=== PATIENT | female | born 1955 | race Two or more races ===

== ENCOUNTER 2016-04-30 21:19 | Inpatient (IN) | payer SELFPAY ==
[~2016-04-30] VITALS: Ht 160 cm; Wt 77.1 kg
[2016-04-30] MEDS: IV NORMAL SALINE 1000ML BAG 1,000 ML IV SCH (01:00)
[2016-04-30] MEDS ORDERED: ONDANSETRON PF 4 MG/2 ML VIAL. IV ONE (22:00)
[2016-04-30] MEDS ORDERED: IV NORMAL SALINE 1000ML BAG 1,000 ML IV ONE (22:00)
[2016-04-30] MEDS ORDERED: HYDROMORPHONE 2 MG/ML VIAL. IV ONE (22:00)
[2016-04-30 22:10] LABS: BASO # 0.1 x10^3/uL (0.0-0.2); BASO % 1 % (0-3); EOS % 1 % (0-3); HEMATOCRIT 41.8 % (36.0-47.0); LYMPH # 1.9 x10^3/uL (1.0-4.8); LYMPH % 13 % (24-48); MEAN CORPUSCULAR HEMOGLOBIN 31 pg (25-35); MEAN CORPUSCULAR HGB CONC 34 g/dL (31-37); MEAN CORPUSCULAR VOLUME 93 fL (79-100); MONO % 5 % (0-9); NEUT % 80 % (31-73); PLATELET COUNT 247 x10^3/uL (140-400); RED BLOOD COUNT 4.51 x10^6/uL (3.50-5.40); RED CELL DISTRIBUTION WIDTH 13.6 % (11.5-14.5); WHITE BLOOD COUNT 14.5 x10^3/uL (4.0-11.0)
[2016-04-30 22:11] LABS: BILIRUBIN,URINE NEGATIVE (NEG); GLUCOSE,URINE NEGATIVE (NEG); NITRITE,URINE NEGATIVE (NEG); PROTEIN,URINE NEGATIVE (NEG-TRACE); UROBILINOGEN,URINE 0.2 mg/dL (0.2 mg/dL)
[2016-04-30 22:15] LABS: WBC,URINE OCC /HPF (0-4)
[2016-04-30 22:16] LABS: BACTERIA,URINE FEW /HPF (0-FEW); SQUAMOUS EPITHELIAL CELL,UR FEW /LPF
[2016-04-30 22:20] LABS: CALCIUM 9.3 mg/dL (8.5-10.1); CREATININE 0.8 mg/dL (0.6-1.0); GFR 72.7; POTASSIUM 3.8 mmol/L (3.5-5.1)
[2016-04-30 22:34] LABS: ALBUMIN 4.3 g/dL (3.4-5.0); TOTAL BILIRUBIN 0.5 mg/dL (0.2-1.0); TOTAL PROTEIN 8.7 g/dL (6.4-8.2)
--- NOTE | 2016-04-30 22:44 | RAD ---
CT abdomen and pelvis without contrast Indication: Ventral hernia and pain. Axial imaging through the abdomen and pelvis was performed without contrast. No prior studies are available for comparison. The lung bases are clear apart from minimal linear parenchymal density suggestive of atelectasis or scarring. The liver is unremarkable. There appear to be small stones or sludge within the gallbladder. The pancreas and spleen are unremarkable. No adrenal masses detected. Kidneys are unremarkable. Aorta is non aneurysmal. There is a midline ventral hernia. There appear to be small bowel loops extending through the abdominal wall defect into the subcutaneous tissues. These bowel loops are dilated and fluid-filled. There is some inflammatory stranding within the mesenteric fat of the anterior abdomen at the level of the hernia. Transition zone with normal caliber small bowel loops are present within the abdomen and findings are consistent with small bowel obstruction. No pneumatosis or free air is seen. There is no abscess formation identified. The bladder and uterus are unremarkable. There appear to be postop changes near the rectosigmoid junction. Impression: Midline ventral hernia containing dilated and fluid filled small bowel loops. There are normal caliber intra abdominal bowel loops and findings are suggestive of small bowel obstruction. No abscess formation or free air is detected. Electronically signed by: Presley Luther MD (Apr 30, 2016 22:43:09)
--- NOTE | 2016-04-30 23:10 | PHYS DOC ---
Past Medical History Past Medical History: High Cholesterol, Hypertension Past Surgical History: Other Additional Past Surgical Histo: hernia repair Alcohol Use: Occasionally Drug Use: None Adult General Chief Complaint Chief Complaint: ABDOMINAL PAIN HPI HPI 61-year-old female presents with a several hour history of severe abdominal pain and a fullness near the ventral umbilical incision. Patient states the pain is severe currently. She states that she's had a previous hernia repair before. She denies any vomiting. She denies any fever chills sweats. [] Review of Systems Review of Systems Constitutional: Denies fever or chills [] Eyes: Denies change in visual acuity, redness, or eye pain [] HENT: Denies nasal congestion or sore throat [] Respiratory: Denies cough or shortness of breath [] Cardiovascular: No additional information not addressed in HPI [] GI: Per history of present illness [] : Denies dysuria or hematuria [] Musculoskeletal: Denies back pain or joint pain [] Integument: Denies rash or skin lesions [] Neurologic: Denies headache, focal weakness or sensory changes [] Endocrine: Denies polyuria or polydipsia [] Current Medications Current Medications Current Medications Medications (Trade) Dose Ordered Sig/Ammy Start Time Stop Time Status Last Admin Dose Admin Hydromorphone HCl (Dilaudid) 1 mg 1X ONCE 04/30/16 22:00 04/30/16 22:01 DC 04/30/16 22:07 1 MG Ondansetron HCl (Zofran) 4 mg 1X ONCE 04/30/16 22:00 04/30/16 22:01 DC 04/30/16 22:06 4 MG Sodium Chloride (Iv Sodium Chloride 0.9% 1000ml Bag) 1,000 ml @ 1,000 mls/hr 1X ONCE 04/30/16 22:00 04/30/16 22:59 DC 04/30/16 22:08 1,000 MLS/HR Allergies Allergies Allergies Coded Allergies Type Severity Reaction Last Updated Verified No Known Drug Allergies 04/30/16 No Physical Exam Physical Exam Constitutional: Well developed, well nourished, moderate distress, non-toxic appearance. [] HENT: Normocephalic, atraumatic, bilateral external ears normal, oropharynx moist, no oral exudates, nose normal. [] Eyes: PERRLA, EOMI, conjunctiva normal, no discharge. [] Neck: Normal range of motion, no tenderness, supple, no stridor. [] Cardiovascular:Heart rate regular rhythm, no murmur [] Lungs & Thorax: Bilateral breath sounds clear to auscultation [] Abdomen: She has a palpable ventral hernia that is exquisitely tender to palp and nonreducible. [] Skin: Warm, dry, no erythema, no rash. [] Back: No tenderness, no CVA tenderness. [] Extremities: No tenderness, no cyanosis, no clubbing, ROM intact, no edema. [] Neurologic: Alert and oriented X 3, normal motor function, normal sensory function, no focal deficits noted. [] Psychologic: Anxious. [] Current Patient Data Vital Signs Vital Signs Date Time Temp Pulse Resp B/P Pulse Ox O2 Delivery O2 Flow Rate FiO2 04/30/16 21:36 97.1 86 22 172/97 98 Room Air 97.1 Lab Values Laboratory Tests Test 04/30/16 21:30 04/30/16 21:50 Urine Collection Type Unknown Urine Color Yellow Urine Clarity Clear Urine pH 6.0 Urine Specific [place] 1.025 Urine Protein Negativemg/dL (NEG-TRACE) Urine Glucose (UA) Negativemg/dL (NEG) Urine Ketones (Stick) Tracemg/dL (NEG) Urine Blood Moderate (NEG) Urine Nitrite Negative (NEG) Urine Bilirubin Negative (NEG) Urine Urobilinogen Dipstick 0.2mg/dL (0.2 mg/dL) Urine Leukocyte Esterase Negative (NEG) Urine RBC 6-10/HPF (0-2) Urine WBC Occ/HPF (0-4) Urine Squamous Epithelial Cells Few/LPF Urine Bacteria Few/HPF (0-FEW) Urine Mucus Slight/LPF White Blood Count 14.5x10^3/uL (4.0-11.0) H Red Blood Count 4.51x10^6/uL (3.50-5.40) Hemoglobin 14.0g/dL (12.0-15.5) Hematocrit 41.8% (36.0-47.0) Mean Corpuscular Volume 93fL (79-100) Mean Corpuscular Hemoglobin 31pg (25-35) Mean Corpuscular Hemoglobin Concent 34g/dL (31-37) Red Cell Distribution Width 13.6% (11.5-14.5) Platelet Count 247x10^3/uL (140-400) Neutrophils (%) (Auto) 80% (31-73) H Lymphocytes (%) (Auto) 13% (24-48) L Monocytes (%) (Auto) 5% (0-9) Eosinophils (%) (Auto) 1% (0-3) Basophils (%) (Auto) 1% (0-3) Neutrophils # (Auto) 11.7x10^3uL (1.8-7.7) H Lymphocytes # (Auto) 1.9x10^3/uL (1.0-4.8) Monocytes # (Auto) 0.8x10^3/uL (0.0-1.1) Eosinophils # (Auto) 0.1x10^3/uL (0.0-0.7) Basophils # (Auto) 0.1x10^3/uL (0.0-0.2) Sodium Level 141mmol/L (136-145) Potassium Level 3.8mmol/L (3.5-5.1) Chloride Level 103mmol/L (98-107) Carbon Dioxide Level 27mmol/L (21-32) Anion Gap 11 (6-14) Blood Urea Nitrogen 17mg/dL (7-20) Creatinine 0.8mg/dL (0.6-1.0) Estimated GFR (Cockcroft-Gault) 72.7 BUN/Creatinine Ratio 21 (6-20) H Glucose Level 130mg/dL (70-99) H Lactic Acid Level 1.3mmol/L (0.4-2.0) Calcium Level 9.3mg/dL (8.5-10.1) Total Bilirubin 0.5mg/dL (0.2-1.0) Aspartate Amino Transferase (AST) 24U/L (15-37) Alanine Aminotransferase (ALT) 25U/L (14-59) Alkaline Phosphatase 102U/L (46-116) Total Protein 8.7g/dL (6.4-8.2) H Albumin 4.3g/dL (3.4-5.0) Albumin/Globulin Ratio 1.0 (1.0-1.7) Lipase 103U/L (73-393) Laboratory Tests 04/30/16 21:50 Laboratory Tests 04/30/16 21:50 EKG EKG [] Radiology/Procedures Radiology/Procedures [] Course & Med Decision Making Course & Med Decision Making Pertinent Labs and Imaging studies reviewed. (See chart for details) [ED course: Evaluation reveals a 61-year-old female with likely incarcerated ventral hernia. CT scan confirms this. An NG tube was placed while she was in the emergency department. I spoke with Dr. Otero who agrees to take care of her from a surgical perspective. Dr. Shah will admit her to the hospital for pain control and further evaluation.] Dragon Disclaimer Dragon Disclaimer This electronic medical record was generated, in whole or in part, using a voice recognition dictation system. Departure Departure Impression: Primary Impression: Incarcerated ventral hernia Disposition: ADMITTED INPATIENT Admitting Physician: Other (Dr. Shah) Condition: GUARDED Referrals: UNKNOWN PCP NAME (PCP) LUCIO SIDDIQUI DO Apr 30, 2016 23:10
[2016-04-30] MEDS ORDERED: ONDANSETRON PF 4 MG/2 ML VIAL. IV PRN (23:15)
--- NOTE | 2016-04-30 23:55 | ACF ---
Admission Forms Criteria PAIN MANAGEMENT [facility] Clinical Indications for Admission to Inpatient Care (Place 'X' for any and all applicable criteria): Hospital admission is needed for appropriate care of the patient because of ANY ONE of the following are present (1)(2)(3)(4)(5): [X ]I. Severe pain requiring acute inpatient management as indicated by ALL of the following (2)(5)(10): [ X]a) Continuous or frequent (eg, every 2 to 4 hours) parenteral analgesics required [A] [X ]b) Necessity (ie, alternative approaches not effective) for analgesic regimen that can only be performed or initiated in inpatient setting [ ]II. Pain causing debilitation to the point of inability to function or be supported at any other level of care [ ]III. Severe side effects from pain medications as indicated by ANY ONE of the following (12)(13)(14)(15): [ ]a) Uncontrollable seizures [ ]b) Cardiac arrhythmias [ ]c) Severe volume depletion [ ]d) Vomiting that is uncontrollable at any other level of care [ ]e) Altered mental status ([place] coma scale score less than 13) [ ]f) Obstipation with inadequate GI function to maintain nutrition [ ]g) Dehydration that is severe or persistent The original [employer] content created by [employer] has been revised. The portions of the content which have been revised are identified through the use of italic text or in bold, and [employer] has neither reviewed nor approved the modified material. All other unmodified content is copyright [employer]. Please see references footnoted in the original [employer] edition 2016 Admission Criteria Met?: Yes ROSALINA BENAVIDES Apr 30, 2016 23:55
[2016-05-01] VITALS (11 sets, daily range): BP systolic 96–140; BP diastolic 48–72
[2016-05-01] MEDS: FENTANYL PF 100 MCG/2 ML VIAL. IV PRN ×2 (03:56→14:55)
[2016-05-01 04:37] LABS: BASO % 0 % (0-3); EOS % 0 % (0-3); HEMATOCRIT 39.5 % (36.0-47.0); HEMOGLOBIN 13.2 g/dL (12.0-15.5); LYMPH # 1.2 x10^3/uL (1.0-4.8); LYMPH % 10 % (24-48); MEAN CORPUSCULAR HEMOGLOBIN 31 pg (25-35); MEAN CORPUSCULAR HGB CONC 33 g/dL (31-37); MEAN CORPUSCULAR VOLUME 92 fL (79-100); MONO % 4 % (0-9); NEUT % 86 % (31-73); PLATELET COUNT 245 x10^3/uL (140-400); RED BLOOD COUNT 4.28 x10^6/uL (3.50-5.40); RED CELL DISTRIBUTION WIDTH 13.5 % (11.5-14.5); WHITE BLOOD COUNT 12.4 x10^3/uL (4.0-11.0)
[2016-05-01 05:40] LABS: ALBUMIN 3.7 g/dL (3.4-5.0); ALBUMIN/GLOBULIN RATIO 0.9 (1.0-1.7); CALCIUM 8.4 mg/dL (8.5-10.1); CREATININE 0.7 mg/dL (0.6-1.0); GFR 84.8; POTASSIUM 4.1 mmol/L (3.5-5.1); TOTAL BILIRUBIN 0.5 mg/dL (0.2-1.0); TOTAL PROTEIN 7.7 g/dL (6.4-8.2)
[2016-05-01] MEDS: IV NORMAL SALINE 1000ML BAG 1,000 ML IV SCH ×3 (05:53→19:13)
--- NOTE | 2016-05-01 07:10 | PDOC2 ---
CONSULT Date of Consult Date of Consult DATE: 05/01/16 TIME: 07:05 Reason for Consult Reason for Consult: Abd pain Source Source: Patient History of Present Illness Reason for Visit: 61 yo female with 12 hour history of abdominal pain, nausea and one episode of vomiting. Previous midline abdominal hernia repairs x2. CT showing ventral hernia with incarcerated small bowel and dilated loops consistient with obstruction. Past Medical History Cardiovascular: HTN, Hyperlipidemia Past Surgical History Past Surgical History: Hernia Repair (Ventral x2) Family History Family History: No Significant Social History No ALCOHOL: rare Drugs: None Lives: with Family Current Problem List Problem List Problems Medical Problems: (1) Incarcerated ventral hernia Status: Acute Current Medications Current Medications Current Medications Sodium Chloride (Iv Sodium Chloride 0.9% 1000ml Bag) 1,000 ml @ 1,000 mls/hr 1X ONCE IV Last administered on 04/30/16 22:08; Start 04/30/16 at 22:00; Stop 04/30/16 at 22:59; Status DC Hydromorphone HCl (Dilaudid) 1 mg 1X ONCE IV Last administered on 04/30/16 22: 07; Start 04/30/16 at 22:00; Stop 04/30/16 at 22:01; Status DC Ondansetron HCl (Zofran) 4 mg 1X ONCE IV Last administered on 04/30/16 22:06; Start 04/30/16 at 22:00; Stop 04/30/16 at 22:01; Status DC Ondansetron HCl (Zofran) 4 mg PRN Q8HRS PRN IV NAUSEA/VOMITING Last administered on 05/01/16 03:56; Start 04/30/16 at 23:15; Stop 05/01/16 at 23:14 Fentanyl Citrate 50 mcg 50 mcg PRN Q1HR PRN IV SEVERE PAIN Last administered on 05/01/16 03:56; Start 04/30/16 at 23:15; Stop 05/01/16 at 23:14 Sodium Chloride (Iv Sodium Chloride 0.9% 1000ml Bag) 1,000 ml @ 150 mls/hr Q6H40M IV Last administered on 04/30/16 01:00; Start 04/30/16 at 23:13; Stop 05/01/16 at 23:12 Allergies Allergies: Coded Allergies: No Known Drug Allergies (Unverified , 04/30/16) ROS Gastrointestinal: Yes Abdominal Pain, Yes Nausea, Yes Vomiting Physical Exam General: Alert, Oriented X3, Cooperative, mild distress HEENT: Atraumatic, PERRLA, EOMI Lungs: Clear to auscultation, Normal air movement Heart: Regular rate, No murmurs Abdomen: Normal bowel sounds, Soft, Other (tender mass midline) Extremities: No clubbing, No edema Skin: No breakdown Neuro: Normal speech Psych/Mental Status: Mental status NL Vitals VITALS Vital Signs Date Time Temp Pulse Resp B/P Pulse Ox O2 Delivery O2 Flow Rate FiO2 05/01/16 03:00 Room Air 05/01/16 00:04 80 18 151/67 93 04/30/16 21:36 97.1 97.1 Labs Labs Laboratory Tests Test 04/30/16 21:30 04/30/16 21:50 05/01/16 04:15 Urine Collection Type Unknown Urine Color Yellow Urine Clarity Clear Urine pH 6.0 Urine Specific [place] 1.025 Urine Protein Negativemg/dL (NEG-TRACE) Urine Glucose (UA) Negativemg/dL (NEG) Urine Ketones (Stick) Tracemg/dL (NEG) Urine Blood Moderate (NEG) Urine Nitrite Negative (NEG) Urine Bilirubin Negative (NEG) Urine Urobilinogen Dipstick 0.2mg/dL (0.2 mg/dL) Urine Leukocyte Esterase Negative (NEG) Urine RBC 6-10/HPF (0-2) Urine WBC Occ/HPF (0-4) Urine Squamous Epithelial Cells Few/LPF Urine Bacteria Few/HPF (0-FEW) Urine Mucus Slight/LPF White Blood Count 14.5x10^3/uL (4.0-11.0) 12.4x10^3/uL (4.0-11.0) Red Blood Count 4.51x10^6/uL (3.50-5.40) 4.28x10^6/uL (3.50-5.40) Hemoglobin 14.0g/dL (12.0-15.5) 13.2g/dL (12.0-15.5) Hematocrit 41.8% (36.0-47.0) 39.5% (36.0-47.0) Mean Corpuscular Volume 93fL (79-100) 92fL (79-100) Mean Corpuscular Hemoglobin 31pg (25-35) 31pg (25-35) Mean Corpuscular Hemoglobin Concent 34g/dL (31-37) 33g/dL (31-37) Red Cell Distribution Width 13.6% (11.5-14.5) 13.5% (11.5-14.5) Platelet Count 247x10^3/uL (140-400) 245x10^3/uL (140-400) Neutrophils (%) (Auto) 80% (31-73) 86% (31-73) Lymphocytes (%) (Auto) 13% (24-48) 10% (24-48) Monocytes (%) (Auto) 5% (0-9) 4% (0-9) Eosinophils (%) (Auto) 1% (0-3) 0% (0-3) Basophils (%) (Auto) 1% (0-3) 0% (0-3) Neutrophils # (Auto) 11.7x10^3uL (1.8-7.7) 10.7x10^3uL (1.8-7.7) Lymphocytes # (Auto) 1.9x10^3/uL (1.0-4.8) 1.2x10^3/uL (1.0-4.8) Monocytes # (Auto) 0.8x10^3/uL (0.0-1.1) 0.5x10^3/uL (0.0-1.1) Eosinophils # (Auto) 0.1x10^3/uL (0.0-0.7) 0.0x10^3/uL (0.0-0.7) Basophils # (Auto) 0.1x10^3/uL (0.0-0.2) 0.0x10^3/uL (0.0-0.2) Sodium Level 141mmol/L (136-145) 140mmol/L (136-145) Potassium Level 3.8mmol/L (3.5-5.1) 4.1mmol/L (3.5-5.1) Chloride Level 103mmol/L (98-107) 107mmol/L (98-107) Carbon Dioxide Level 27mmol/L (21-32) 24mmol/L (21-32) Anion Gap 11 (6-14) 9 (6-14) Blood Urea Nitrogen 17mg/dL (7-20) 17mg/dL (7-20) Creatinine 0.8mg/dL (0.6-1.0) 0.7mg/dL (0.6-1.0) Estimated GFR (Cockcroft-Gault) 72.7 84.8 BUN/Creatinine Ratio 21 (6-20) 24 (6-20) Glucose Level 130mg/dL (70-99) 148mg/dL (70-99) Lactic Acid Level 1.3mmol/L (0.4-2.0) Calcium Level 9.3mg/dL (8.5-10.1) 8.4mg/dL (8.5-10.1) Total Bilirubin 0.5mg/dL (0.2-1.0) 0.5mg/dL (0.2-1.0) Aspartate Amino Transf (AST/SGOT) 24U/L (15-37) 20U/L (15-37) Alanine Aminotransferase (ALT/SGPT) 25U/L (14-59) 17U/L (14-59) Alkaline Phosphatase 102U/L (46-116) 91U/L (46-116) Total Protein 8.7g/dL (6.4-8.2) 7.7g/dL (6.4-8.2) Albumin 4.3g/dL (3.4-5.0) 3.7g/dL (3.4-5.0) Albumin/Globulin Ratio 1.0 (1.0-1.7) 0.9 (1.0-1.7) Lipase 103U/L (73-393) Laboratory Tests Test 04/30/16 21:30 04/30/16 21:50 05/01/16 04:15 Urine Collection Type Unknown Urine Color Yellow Urine Clarity Clear Urine pH 6.0 Urine Specific [place] 1.025 Urine Protein Negativemg/dL (NEG-TRACE) Urine Glucose (UA) Negativemg/dL (NEG) Urine Ketones (Stick) Tracemg/dL (NEG) Urine Blood Moderate (NEG) Urine Nitrite Negative (NEG) Urine Bilirubin Negative (NEG) Urine Urobilinogen Dipstick 0.2mg/dL (0.2 mg/dL) Urine Leukocyte Esterase Negative (NEG) Urine RBC 6-10/HPF (0-2) Urine WBC Occ/HPF (0-4) Urine Squamous Epithelial Cells Few/LPF Urine Bacteria Few/HPF (0-FEW) Urine Mucus Slight/LPF White Blood Count 14.5x10^3/uL (4.0-11.0) 12.4x10^3/uL (4.0-11.0) Red Blood Count 4.51x10^6/uL (3.50-5.40) 4.28x10^6/uL (3.50-5.40) Hemoglobin 14.0g/dL (12.0-15.5) 13.2g/dL (12.0-15.5) Hematocrit 41.8% (36.0-47.0) 39.5% (36.0-47.0) Mean Corpuscular Volume 93fL (79-100) 92fL (79-100) Mean Corpuscular Hemoglobin 31pg (25-35) 31pg (25-35) Mean Corpuscular Hemoglobin Concent 34g/dL (31-37) 33g/dL (31-37) Red Cell Distribution Width 13.6% (11.5-14.5) 13.5% (11.5-14.5) Platelet Count 247x10^3/uL (140-400) 245x10^3/uL (140-400) Neutrophils (%) (Auto) 80% (31-73) 86% (31-73) Lymphocytes (%) (Auto) 13% (24-48) 10% (24-48) Monocytes (%) (Auto) 5% (0-9) 4% (0-9) Eosinophils (%) (Auto) 1% (0-3) 0% (0-3) Basophils (%) (Auto) 1% (0-3) 0% (0-3) Neutrophils # (Auto) 11.7x10^3uL (1.8-7.7) 10.7x10^3uL (1.8-7.7) Lymphocytes # (Auto) 1.9x10^3/uL (1.0-4.8) 1.2x10^3/uL (1.0-4.8) Monocytes # (Auto) 0.8x10^3/uL (0.0-1.1) 0.5x10^3/uL (0.0-1.1) Eosinophils # (Auto) 0.1x10^3/uL (0.0-0.7) 0.0x10^3/uL (0.0-0.7) Basophils # (Auto) 0.1x10^3/uL (0.0-0.2) 0.0x10^3/uL (0.0-0.2) Sodium Level 141mmol/L (136-145) 140mmol/L (136-145) Potassium Level 3.8mmol/L (3.5-5.1) 4.1mmol/L (3.5-5.1) Chloride Level 103mmol/L (98-107) 107mmol/L (98-107) Carbon Dioxide Level 27mmol/L (21-32) 24mmol/L (21-32) Anion Gap 11 (6-14) 9 (6-14) Blood Urea Nitrogen 17mg/dL (7-20) 17mg/dL (7-20) Creatinine 0.8mg/dL (0.6-1.0) 0.7mg/dL (0.6-1.0) Estimated GFR (Cockcroft-Gault) 72.7 84.8 BUN/Creatinine Ratio 21 (6-20) 24 (6-20) Glucose Level 130mg/dL (70-99) 148mg/dL (70-99) Lactic Acid Level 1.3mmol/L (0.4-2.0) Calcium Level 9.3mg/dL (8.5-10.1) 8.4mg/dL (8.5-10.1) Total Bilirubin 0.5mg/dL (0.2-1.0) 0.5mg/dL (0.2-1.0) Aspartate Amino Transf (AST/SGOT) 24U/L (15-37) 20U/L (15-37) Alanine Aminotransferase (ALT/SGPT) 25U/L (14-59) 17U/L (14-59) Alkaline Phosphatase 102U/L (46-116) 91U/L (46-116) Total Protein 8.7g/dL (6.4-8.2) 7.7g/dL (6.4-8.2) Albumin 4.3g/dL (3.4-5.0) 3.7g/dL (3.4-5.0) Albumin/Globulin Ratio 1.0 (1.0-1.7) 0.9 (1.0-1.7) Lipase 103U/L (73-393) Assessment/Plan Assessment/Plan Incarcerated recurrent ventral hernia Plan repair KATHLEEN AGUIRRE MD May 01, 2016 07:10
[2016-05-01] MEDS ORDERED: IV RINGERS,LACTATED 1000ML 1,000 ML IV SCH (07:11)
[2016-05-01] MEDS ORDERED: LIDOCAINE 1% 1 ML SYRINGE. ID PRN (07:15)
[2016-05-01] MEDS ORDERED: HYDROMORPHONE 2 MG/ML VIAL. IV PRN (07:15)
[2016-05-01] MEDS ORDERED: PROCHLORPERAZINE 10 MG/2 ML VIAL. IV PRN (07:15)
[2016-05-01] MEDS ORDERED: MORPHINE SULFATE 2 MG/ML DISP.SYRIN. IV PRN (07:15)
[2016-05-01] MEDS ORDERED: FENTANYL PF 100 MCG/2 ML VIAL. IV PRN ×2 (07:15)
[2016-05-01] MEDS ORDERED: ONDANSETRON PF 4 MG/2 ML VIAL. IV PRN (07:15)
[2016-05-01] MEDS ORDERED: CEFOXITIN 2GM IVPB FOR OMNI. IV ONE (08:00)
[2016-05-01] MEDS ORDERED: CEFOXITIN 2GM IVPB FOR OMNI 100 ML IV ONE ×2 (08:13→08:45)
[2016-05-01] MEDS ORDERED: DEXAMETHASONE SOD PHOS 20 MG/5 ML VIAL. ONE (08:15)
[2016-05-01] MEDS ORDERED: ROCURONIUM 50 MG/5 ML VIAL. ONE (08:15)
[2016-05-01] MEDS ORDERED: PROPOFOL 20 ML IV ONE (08:15)
[2016-05-01] MEDS ORDERED: ONDANSETRON PF 4 MG/2 ML VIAL. ONE (08:15)
[2016-05-01] MEDS ORDERED: FAMOTIDINE 20 MG/2 ML VIAL ONE (08:15)
[2016-05-01] MEDS ORDERED: LIDOCAINE 2% 100 MG/5 ML DISP.SYRIN. ONE (08:15)
[2016-05-01] MEDS ORDERED: FENTANYL PF 100 MCG/2 ML VIAL. ONE (08:15)
[2016-05-01] MEDS ORDERED: SUCCINYLCHOLINE 200 MG/10 ML VIAL. ONE (08:27)
[2016-05-01] MEDS ORDERED: PHENYLEPHRINE in 0.9% NACL PF 1 MG/10 ML DISP.SYRIN. IV ONE (08:34)
[2016-05-01] MEDS ORDERED: MORPHINE SULFATE 10 MG/ML VIAL. ONE (08:42)
[2016-05-01] MEDS ORDERED: NEOSTIGMINE METHYLSULFATE 5 MG/5 ML SYRINGE. ONE (10:07)
[2016-05-01] MEDS ORDERED: GLYCOPYRROLATE 1 MG/5 ML VIAL. ONE (10:07)
[2016-05-01] MEDS: IV DEXTROSE 5%-LACT RINGERS 1,000 ML IV SCH ×2 (10:32→21:21)
[2016-05-01] MEDS ORDERED: SEVOFLURANE > 120 MINUTES. IH ONE (10:34)
--- NOTE | 2016-05-01 10:35 | PDOC ---
BRIEF OPERATIVE NOTE Date: May 01, 2016 Pre-Op Diagnosis Incarcerated ventral hernia Post-Op Diagnosis Same Procedure Performed Exploratory laparotomy with lysis of adhesions, closure of ventral hernia with mesh Surgeon Branden Anesthesia Type: General Blood Loss 150ml Specimens Obtained none Findings as above Complications None KATHLEEN AGUIRRE MD May 01, 2016 10:35
[2016-05-01] MEDS ORDERED: OXYCODONE/APAP 5/325 TABLET. PO PRN ×2 (10:45)
[2016-05-01] MEDS ORDERED: 0.9 % SODIUM CHLORIDE 10 ML DISP.SYRIN. IV PRN (10:45)
--- NOTE | 2016-05-01 11:02 | PDOC1 ---
History and Physical Date of Admission Date of Admission 04/30/16 Identification/Chief Complaint Chief Complaint abd pain Problems: Source Source: Chart review, Patient History of Present Illness History of Present Illness HPI HPI 61-year-old female presents with a several hour history of severe abdominal pain and a fullness near the ventral umbilical incision. Patient states the pain is severe currently.+ N/V. he states that she's had a previous hernia repair before. no fever, chills, sob. CT showed Midline ventral hernia containing dilated and fluid filled small bowel loops. There are normal caliber intra abdominal bowel loops and findings are suggestive of small bowel obstruction. No abscess formation or free air is detected. Past Medical History Cardiovascular: HTN, Hyperlipidemia Past Surgical History Past Surgical History: Hernia Repair (Ventral x2) Family History Family History: No Significant Social History Smoke: No ALCOHOL: rare Drugs: None Current Problem List Problem List Problems Medical Problems: (1) Incarcerated ventral hernia Status: Acute Current Medications Current Medications Current Medications Medications (Trade) Dose Ordered Sig/Ammy Start Time Stop Time Status Last Admin Dose Admin Cefoxitin Sodium (Mefoxin 2gm Ivpb For Omni) 100 ml @ 200 mls/hr ONCE ONCE 05/01/16 08:45 05/01/16 09:14 DC Dexamethasone Sodium Phosphate 20 mg 20 mg STK-MED ONCE 05/01/16 08:15 05/01/16 08:16 DC Dextrose/Lactated Ringer's (Iv D5%-Lr) 1,000 ml @ 75 mls/hr [id number] 05/01/16 10:32 Famotidine (Pepcid) 20 mg STK-MED ONCE 05/01/16 08:15 05/01/16 08:16 DC Fentanyl Citrate (Fentanyl 2ml Vial) 100 mcg STK-MED ONCE 05/01/16 08:15 05/01/16 08:16 DC Fentanyl Citrate 50 mcg 50 mcg PRN Q1HR PRN 04/30/16 23:15 05/01/16 23:14 05/01/16 03:56 50 MCG Glycopyrrolate (Robinul) 1 mg STK-MED ONCE 05/01/16 10:07 05/01/16 10:08 DC Hydromorphone HCl (Dilaudid) 0.5 mg PRN Q10MIN PRN 05/01/16 07:15 05/01/16 18:00 Ketorolac Tromethamine (Toradol) 15 mg Q6HRS 05/01/16 12:00 05/03/16 11:59 Lactated Ringer's (Iv Lactated Ringers) 1,000 ml @ 30 mls/hr Q24H 05/01/16 07:11 05/01/16 19:10 05/01/16 08:00 30 MLS/HR Lidocaine HCl 100 mg STK-MED ONCE 05/01/16 08:15 05/01/16 08:16 DC Morphine Sulfate 2 mg PRN Q3HRS PRN 05/01/16 10:45 Morphine Sulfate 1 mg 1 mg PRN Q10MIN PRN 05/01/16 07:15 05/01/16 18:00 Neostigmine Methylsulfate 5 mg STK-MED ONCE 05/01/16 10:07 05/01/16 10:08 DC Ondansetron HCl (Zofran) 4 mg STK-MED ONCE 05/01/16 08:15 05/01/16 08:16 DC Ondansetron HCl 4 mg 4 mg PRN Q6HRS PRN 05/01/16 10:45 Oxycodone/ Acetaminophen (Percocet 5/325) 2 tab PRN Q4HRS PRN 05/01/16 10:45 Phenylephrine HCl 1 mg STK-MED ONCE 05/01/16 08:34 05/01/16 08:35 DC Prochlorperazine Edisylate (Compazine) 5 mg PACU PRN PRN 05/01/16 07:15 05/01/16 18:00 Propofol (Diprivan) 20 ml @ As Directed STK-MED ONCE 05/01/16 08:15 05/01/16 08:16 DC Rocuronium [place] (Zemuron) 50 mg STK-MED ONCE 05/01/16 08:15 05/01/16 08:16 DC Sevoflurane (Ultane) 90 ml STK-MED ONCE 05/01/16 10:34 05/01/16 10:35 DC Sodium Chloride (Iv Sodium Chloride 0.9% 1000ml Bag) 1,000 ml @ 150 mls/hr Q6H40M 04/30/16 23:13 05/01/16 23:12 04/30/16 01:00 150 MLS/HR Sodium Chloride (Normal Saline Flush) 3 ml QSHIFT PRN 05/01/16 10:45 Succinylcholine Chloride 200 mg 200 mg STK-MED ONCE 05/01/16 08:27 05/01/16 08:28 DC Allergies Allergies Allergies Coded Allergies Type Severity Reaction Last Updated Verified No Known Drug Allergies 04/30/16 No ROS Review of System CONSTITUTIONAL: No fever or chills EYES: No recent changes SKIN: No rash or itching CARDIOVASCULAR: No chest pain, syncope, palpitations, or edema RESPIRATORY: No SOB or cough GASTROINTESTINAL: No nausea, vomiting or abdominal pain NEUROLOGICAL: No headaches or weakness ENDOCRINE: No cold or heat intolerance GENITOURINARY: No urgency or frequency of urination MUSCULOSKELETAL: No back pain or joint pain LYMPHATICS: No enlarged lymph nodes PSYCHIATRIC: No anxiety or depression Physical Exam Physical Exam GEN.: No apparent distress. Alert and oriented. HEENT: Head is normocephalic, atraumatic NECK: Supple. LUNGS: Clear to auscultation. HEART: RRR, S1, S2 present. Peripheral pulses intact ABDOMEN: Soft, decreased bowel sound. + tenderness. clean dressing post op. EXTREMITIES: Without any cyanosis. NEUROLOGIC: Normal speech, normal tone PSYCHIATRIC: Normal affect, normal mood. SKIN: No ulcerations Vitals Vitals Vital Signs Date Time Temp Pulse Resp B/P Pulse Ox O2 Delivery O2 Flow Rate FiO2 05/01/16 09:26 Room Air 05/01/16 08:07 98.5 87 15 163/65 96 98.5 Labs Labs Laboratory Tests Test 04/30/16 21:30 04/30/16 21:50 05/01/16 04:15 Urine Collection Type Unknown Urine Color Yellow Urine Clarity Clear Urine pH 6.0 Urine Specific [place] 1.025 Urine Protein Negativemg/dL (NEG-TRACE) Urine Glucose (UA) Negativemg/dL (NEG) Urine Ketones (Stick) Tracemg/dL (NEG) Urine Blood Moderate (NEG) Urine Nitrite Negative (NEG) Urine Bilirubin Negative (NEG) Urine Urobilinogen Dipstick 0.2mg/dL (0.2 mg/dL) Urine Leukocyte Esterase Negative (NEG) Urine RBC 6-10/HPF (0-2) Urine WBC Occ/HPF (0-4) Urine Squamous Epithelial Cells Few/LPF Urine Bacteria Few/HPF (0-FEW) Urine Mucus Slight/LPF White Blood Count 14.5x10^3/uL (4.0-11.0) 12.4x10^3/uL (4.0-11.0) Red Blood Count 4.51x10^6/uL (3.50-5.40) 4.28x10^6/uL (3.50-5.40) Hemoglobin 14.0g/dL (12.0-15.5) 13.2g/dL (12.0-15.5) Hematocrit 41.8% (36.0-47.0) 39.5% (36.0-47.0) Mean Corpuscular Volume 93fL (79-100) 92fL (79-100) Mean Corpuscular Hemoglobin 31pg (25-35) 31pg (25-35) Mean Corpuscular Hemoglobin Concent 34g/dL (31-37) 33g/dL (31-37) Red Cell Distribution Width 13.6% (11.5-14.5) 13.5% (11.5-14.5) Platelet Count 247x10^3/uL (140-400) 245x10^3/uL (140-400) Neutrophils (%) (Auto) 80% (31-73) 86% (31-73) Lymphocytes (%) (Auto) 13% (24-48) 10% (24-48) Monocytes (%) (Auto) 5% (0-9) 4% (0-9) Eosinophils (%) (Auto) 1% (0-3) 0% (0-3) Basophils (%) (Auto) 1% (0-3) 0% (0-3) Neutrophils # (Auto) 11.7x10^3uL (1.8-7.7) 10.7x10^3uL (1.8-7.7) Lymphocytes # (Auto) 1.9x10^3/uL (1.0-4.8) 1.2x10^3/uL (1.0-4.8) Monocytes # (Auto) 0.8x10^3/uL (0.0-1.1) 0.5x10^3/uL (0.0-1.1) Eosinophils # (Auto) 0.1x10^3/uL (0.0-0.7) 0.0x10^3/uL (0.0-0.7) Basophils # (Auto) 0.1x10^3/uL (0.0-0.2) 0.0x10^3/uL (0.0-0.2) Sodium Level 141mmol/L (136-145) 140mmol/L (136-145) Potassium Level 3.8mmol/L (3.5-5.1) 4.1mmol/L (3.5-5.1) Chloride Level 103mmol/L (98-107) 107mmol/L (98-107) Carbon Dioxide Level 27mmol/L (21-32) 24mmol/L (21-32) Anion Gap 11 (6-14) 9 (6-14) Blood Urea Nitrogen 17mg/dL (7-20) 17mg/dL (7-20) Creatinine 0.8mg/dL (0.6-1.0) 0.7mg/dL (0.6-1.0) Estimated GFR (Cockcroft-Gault) 72.7 84.8 BUN/Creatinine Ratio 21 (6-20) 24 (6-20) Glucose Level 130mg/dL (70-99) 148mg/dL (70-99) Lactic Acid Level 1.3mmol/L (0.4-2.0) Calcium Level 9.3mg/dL (8.5-10.1) 8.4mg/dL (8.5-10.1) Total Bilirubin 0.5mg/dL (0.2-1.0) 0.5mg/dL (0.2-1.0) Aspartate Amino Transf (AST/SGOT) 24U/L (15-37) 20U/L (15-37) Alanine Aminotransferase (ALT/SGPT) 25U/L (14-59) 17U/L (14-59) Alkaline Phosphatase 102U/L (46-116) 91U/L (46-116) Total Protein 8.7g/dL (6.4-8.2) 7.7g/dL (6.4-8.2) Albumin 4.3g/dL (3.4-5.0) 3.7g/dL (3.4-5.0) Albumin/Globulin Ratio 1.0 (1.0-1.7) 0.9 (1.0-1.7) Lipase 103U/L (73-393) Laboratory Tests Test 04/30/16 21:30 04/30/16 21:50 05/01/16 04:15 Urine Collection Type Unknown Urine Color Yellow Urine Clarity Clear Urine pH 6.0 Urine Specific [place] 1.025 Urine Protein Negativemg/dL (NEG-TRACE) Urine Glucose (UA) Negativemg/dL (NEG) Urine Ketones (Stick) Tracemg/dL (NEG) Urine Blood Moderate (NEG) Urine Nitrite Negative (NEG) Urine Bilirubin Negative (NEG) Urine Urobilinogen Dipstick 0.2mg/dL (0.2 mg/dL) Urine Leukocyte Esterase Negative (NEG) Urine RBC 6-10/HPF (0-2) Urine WBC Occ/HPF (0-4) Urine Squamous Epithelial Cells Few/LPF Urine Bacteria Few/HPF (0-FEW) Urine Mucus Slight/LPF White Blood Count 14.5x10^3/uL (4.0-11.0) 12.4x10^3/uL (4.0-11.0) Red Blood Count 4.51x10^6/uL (3.50-5.40) 4.28x10^6/uL (3.50-5.40) Hemoglobin 14.0g/dL (12.0-15.5) 13.2g/dL (12.0-15.5) Hematocrit 41.8% (36.0-47.0) 39.5% (36.0-47.0) Mean Corpuscular Volume 93fL (79-100) 92fL (79-100) Mean Corpuscular Hemoglobin 31pg (25-35) 31pg (25-35) Mean Corpuscular Hemoglobin Concent 34g/dL (31-37) 33g/dL (31-37) Red Cell Distribution Width 13.6% (11.5-14.5) 13.5% (11.5-14.5) Platelet Count 247x10^3/uL (140-400) 245x10^3/uL (140-400) Neutrophils (%) (Auto) 80% (31-73) 86% (31-73) Lymphocytes (%) (Auto) 13% (24-48) 10% (24-48) Monocytes (%) (Auto) 5% (0-9) 4% (0-9) Eosinophils (%) (Auto) 1% (0-3) 0% (0-3) Basophils (%) (Auto) 1% (0-3) 0% (0-3) Neutrophils # (Auto) 11.7x10^3uL (1.8-7.7) 10.7x10^3uL (1.8-7.7) Lymphocytes # (Auto) 1.9x10^3/uL (1.0-4.8) 1.2x10^3/uL (1.0-4.8) Monocytes # (Auto) 0.8x10^3/uL (0.0-1.1) 0.5x10^3/uL (0.0-1.1) Eosinophils # (Auto) 0.1x10^3/uL (0.0-0.7) 0.0x10^3/uL (0.0-0.7) Basophils # (Auto) 0.1x10^3/uL (0.0-0.2) 0.0x10^3/uL (0.0-0.2) Sodium Level 141mmol/L (136-145) 140mmol/L (136-145) Potassium Level 3.8mmol/L (3.5-5.1) 4.1mmol/L (3.5-5.1) Chloride Level 103mmol/L (98-107) 107mmol/L (98-107) Carbon Dioxide Level 27mmol/L (21-32) 24mmol/L (21-32) Anion Gap 11 (6-14) 9 (6-14) Blood Urea Nitrogen 17mg/dL (7-20) 17mg/dL (7-20) Creatinine 0.8mg/dL (0.6-1.0) 0.7mg/dL (0.6-1.0) Estimated GFR (Cockcroft-Gault) 72.7 84.8 BUN/Creatinine Ratio 21 (6-20) 24 (6-20) Glucose Level 130mg/dL (70-99) 148mg/dL (70-99) Lactic Acid Level 1.3mmol/L (0.4-2.0) Calcium Level 9.3mg/dL (8.5-10.1) 8.4mg/dL (8.5-10.1) Total Bilirubin 0.5mg/dL (0.2-1.0) 0.5mg/dL (0.2-1.0) Aspartate Amino Transf (AST/SGOT) 24U/L (15-37) 20U/L (15-37) Alanine Aminotransferase (ALT/SGPT) 25U/L (14-59) 17U/L (14-59) Alkaline Phosphatase 102U/L (46-116) 91U/L (46-116) Total Protein 8.7g/dL (6.4-8.2) 7.7g/dL (6.4-8.2) Albumin 4.3g/dL (3.4-5.0) 3.7g/dL (3.4-5.0) Albumin/Globulin Ratio 1.0 (1.0-1.7) 0.9 (1.0-1.7) Lipase 103U/L (73-393) VTE Prophylaxis Ordered VTE Prophylaxis Devices: Yes VTE Pharmacological Prophylaxi: No Assessment/Plan Assessment/Plan 1. abd pain with incarcerated ventral hernia with sbo post Exploratory laparotomy with lysis of adhesions, closure of ventral hernia with mesh on 05/01 2. HTN 3. HLD 4. h/o HERNIA repair plan: 1. fu with sx, NGT, npo 2. ivf 3. pain control 4. need home meds 5. dvt ppx defer to sx, maybe tmr gi ppx PTOT COLEEN BROTHERS MD May 01, 2016 11:02
[2016-05-01] MEDS ORDERED: hydrALAZINE 20 MG/ML VIAL. IVP PRN (11:15)
[2016-05-01] MEDS ORDERED: ACETAMINOPHEN 650 MG SUPP.RECT. PR PRN (11:15)
[2016-05-01] MEDS: KETOROLAC 15 MG/ML VIAL. IV SCH ×2 (12:00→18:22)
--- NOTE | 2016-05-01 17:22 | OP ---
DATE OF SURGERY: 05/01/2016 PREOPERATIVE DIAGNOSIS: Recurrent incarcerated ventral hernia. POSTOPERATIVE DIAGNOSIS: Recurrent incarcerated ventral hernia. PROCEDURE: Exploratory laparotomy, lysis of adhesions, closure of ventral hernia with mesh. SURGEON: Jayy Aguirre M.D. INDICATIONS: The patient is a 59-year-old female who was admitted to the hospital with abdominal pain. A CT scan showing a moderate size ventral hernia with incarcerated small bowel and obstructive symptoms. Procedure of exploratory laparotomy with lysis of adhesions, possible small bowel resection and repair of ventral hernia was explained to the patient in detail. All risks and benefits were also discussed including bleeding, infection, injury to intra-abdominal contents, possibly necessitating further more operations. Alternatives of this procedure were also discussed with the patient who seemed to understand and gave verbal and written consent to have the procedure performed. DESCRIPTION OF PROCEDURE: The patient was taken to the operating room and placed in the supine position, general anesthesia was initiated. Once the patient was asleep and intubated, abdomen was prepped and draped in the usual sterile fashion using ChloraPrep. A midline incision was made with 10 blade scalpel, was carried down through subcutaneous tissue with electrocautery for hemostasis down to the fascia. The hernia defect was visualized. This was opened with Metzenbaum scissors. This allowed for placement of finger within the abdomen. Fascia was further opened with electrocautery. There were quite a few adhesions of the small bowel to the anterior abdominal wall. These were taken down with sharp dissection with Metzenbaum scissors allowing for the ____ midline incision to be opened. At this point, adhesions of the small bowel were taken down allowing access to the abdomen. This took majority of time, 75% of the OR time to take these adhesions down. Once the small bowel was completely freed of adhesions allowing for running the bowel from the ligament of Treitz to the terminal ileum and cecum ____ that no other evidence of obstruction were noted. At this point, the subcutaneous tissue was taken off the fascia to allow for placed on mesh with electrocautery. The fascia was then closed with a running 0 looped Novafil with interrupted #2 Vicryl [id number] sutures placed intermittently along the fascia. Once this was closed, a VersaLite mesh was then placed as an overlay patch over the midline incision of the fascia. This was sewn into place with a running 3-0 Vicryl. A 19-Turkish AMIRAH drain was placed through a separate incision to be placed at the very independent portion of the incision and the subcutaneous space. This was sewn into place with a 2-0 silk suture. The deep subcutaneous layer was closed with running 3-0 Vicryl and the skin was reapproximated with 4-0 subcuticular Monocryl. Mastisol, Steri-Strips, 4 x 4's and Medipore tape were applied as a dressing. The patient was awakened, extubated in the operating room, taken to recovery in stable condition. All sponge, instrument and needle counts listed as correct. estimated blood loss is 150 mL. JAYY AGUIRRE MD DR: DAVID/julio JOB#: [id number] / [id number]
[2016-05-01] MEDS: ONDANSETRON PF 4 MG/2 ML VIAL. IV PRN (18:22)
[2016-05-01] MEDS: FAMOTIDINE 20 MG/2 ML VIAL IVP SCH (21:22)
[2016-05-01] MEDS: MORPHINE SULFATE 2 MG/ML DISP.SYRIN. IV PRN (21:35)
[2016-05-02 03:00] VITALS: BP 117/56
[2016-05-02] MEDS: MORPHINE SULFATE 2 MG/ML DISP.SYRIN. IV PRN ×3 (04:00→23:17)
[2016-05-02] MEDS: ONDANSETRON PF 4 MG/2 ML VIAL. IV PRN ×2 (04:00→09:58)
[2016-05-02 05:20] LABS: BASO # 0.1 x10^3/uL (0.0-0.2); BASO % 0 % (0-3); EOS % 0 % (0-3); HEMATOCRIT 33.5 % (36.0-47.0); HEMOGLOBIN 11.2 g/dL (12.0-15.5); LYMPH # 1.5 x10^3/uL (1.0-4.8); LYMPH % 12 % (24-48); MEAN CORPUSCULAR HEMOGLOBIN 31 pg (25-35); MEAN CORPUSCULAR HGB CONC 34 g/dL (31-37); MEAN CORPUSCULAR VOLUME 93 fL (79-100); MONO % 12 % (0-9); NEUT % 76 % (31-73); PLATELET COUNT 210 x10^3/uL (140-400); WHITE BLOOD COUNT 12.5 x10^3/uL (4.0-11.0)
[2016-05-02 05:39] LABS: CALCIUM 7.9 mg/dL (8.5-10.1); CREATININE 0.7 mg/dL (0.6-1.0); GFR 84.8; POTASSIUM 4.4 mmol/L (3.5-5.1)
[2016-05-02] MEDS: KETOROLAC 15 MG/ML VIAL. IV SCH ×5 (05:52→23:17)
[2016-05-02 07:00] VITALS: BP 96/41
--- NOTE | 2016-05-02 10:06 | PDOC ---
SURGICAL PROGRESS NOTE Subjective looks comfortable pain controlled Vital Signs Vital Signs Date Time Temp Pulse Resp B/P Pulse Ox O2 Delivery O2 Flow Rate FiO2 05/02/16 09:52 16 92 2.0 05/02/16 07:00 98.0 83 96/41 Room Air 98.0 I&O Intake and Output 05/02/16 07:00 Intake Total 0 ml Output Total 1195 ml Balance -1195 ml Intake Oral 0 ml Output Urine Total 1100 ml Drainage Total 95 ml PATIENT HAS A FREY: Yes General: Alert, No acute distress Abdomen: Soft Labs Laboratory Tests Test 04/30/16 21:30 04/30/16 21:50 05/01/16 04:15 05/02/16 03:50 Urine Collection Type Unknown Urine Color Yellow Urine Clarity Clear Urine pH 6.0 Urine Specific [place] 1.025 Urine Protein Negativemg/dL (NEG-TRACE) Urine Glucose (UA) Negativemg/dL (NEG) Urine Ketones (Stick) Tracemg/dL (NEG) Urine Blood Moderate (NEG) Urine Nitrite Negative (NEG) Urine Bilirubin Negative (NEG) Urine Urobilinogen Dipstick 0.2mg/dL (0.2 mg/dL) Urine Leukocyte Esterase Negative (NEG) Urine RBC 6-10/HPF (0-2) Urine WBC Occ/HPF (0-4) Urine Squamous Epithelial Cells Few/LPF Urine Bacteria Few/HPF (0-FEW) Urine Mucus Slight/LPF White Blood Count 14.5x10^3/uL (4.0-11.0) 12.4x10^3/uL (4.0-11.0) 12.5x10^3/uL (4.0-11.0) Red Blood Count 4.51x10^6/uL (3.50-5.40) 4.28x10^6/uL (3.50-5.40) 3.60x10^6/uL (3.50-5.40) Hemoglobin 14.0g/dL (12.0-15.5) 13.2g/dL (12.0-15.5) 11.2g/dL (12.0-15.5) Hematocrit 41.8% (36.0-47.0) 39.5% (36.0-47.0) 33.5% (36.0-47.0) Mean Corpuscular Volume 93fL (79-100) 92fL (79-100) 93fL (79-100) Mean Corpuscular Hemoglobin 31pg (25-35) 31pg (25-35) 31pg (25-35) Mean Corpuscular Hemoglobin Concent 34g/dL (31-37) 33g/dL (31-37) 34g/dL (31-37) Red Cell Distribution Width 13.6% (11.5-14.5) 13.5% (11.5-14.5) 14.0% (11.5-14.5) Platelet Count 247x10^3/uL (140-400) 245x10^3/uL (140-400) 210x10^3/uL (140-400) Neutrophils (%) (Auto) 80% (31-73) 86% (31-73) 76% (31-73) Lymphocytes (%) (Auto) 13% (24-48) 10% (24-48) 12% (24-48) Monocytes (%) (Auto) 5% (0-9) 4% (0-9) 12% (0-9) Eosinophils (%) (Auto) 1% (0-3) 0% (0-3) 0% (0-3) Basophils (%) (Auto) 1% (0-3) 0% (0-3) 0% (0-3) Neutrophils # (Auto) 11.7x10^3uL (1.8-7.7) 10.7x10^3uL (1.8-7.7) 9.4x10^3uL (1.8-7.7) Lymphocytes # (Auto) 1.9x10^3/uL (1.0-4.8) 1.2x10^3/uL (1.0-4.8) 1.5x10^3/uL (1.0-4.8) Monocytes # (Auto) 0.8x10^3/uL (0.0-1.1) 0.5x10^3/uL (0.0-1.1) 1.5x10^3/uL (0.0-1.1) Eosinophils # (Auto) 0.1x10^3/uL (0.0-0.7) 0.0x10^3/uL (0.0-0.7) 0.0x10^3/uL (0.0-0.7) Basophils # (Auto) 0.1x10^3/uL (0.0-0.2) 0.0x10^3/uL (0.0-0.2) 0.1x10^3/uL (0.0-0.2) Sodium Level 141mmol/L (136-145) 140mmol/L (136-145) 142mmol/L (136-145) Potassium Level 3.8mmol/L (3.5-5.1) 4.1mmol/L (3.5-5.1) 4.4mmol/L (3.5-5.1) Chloride Level 103mmol/L (98-107) 107mmol/L (98-107) 107mmol/L (98-107) Carbon Dioxide Level 27mmol/L (21-32) 24mmol/L (21-32) 28mmol/L (21-32) Anion Gap 11 (6-14) 9 (6-14) 7 (6-14) Blood Urea Nitrogen 17mg/dL (7-20) 17mg/dL (7-20) 15mg/dL (7-20) Creatinine 0.8mg/dL (0.6-1.0) 0.7mg/dL (0.6-1.0) 0.7mg/dL (0.6-1.0) Estimated GFR (Cockcroft-Gault) 72.7 84.8 84.8 BUN/Creatinine Ratio 21 (6-20) 24 (6-20) Glucose Level 130mg/dL (70-99) 148mg/dL (70-99) 134mg/dL (70-99) Lactic Acid Level 1.3mmol/L (0.4-2.0) Calcium Level 9.3mg/dL (8.5-10.1) 8.4mg/dL (8.5-10.1) 7.9mg/dL (8.5-10.1) Total Bilirubin 0.5mg/dL (0.2-1.0) 0.5mg/dL (0.2-1.0) Aspartate Amino Transf (AST/SGOT) 24U/L (15-37) 20U/L (15-37) Alanine Aminotransferase (ALT/SGPT) 25U/L (14-59) 17U/L (14-59) Alkaline Phosphatase 102U/L (46-116) 91U/L (46-116) Total Protein 8.7g/dL (6.4-8.2) 7.7g/dL (6.4-8.2) Albumin 4.3g/dL (3.4-5.0) 3.7g/dL (3.4-5.0) Albumin/Globulin Ratio 1.0 (1.0-1.7) 0.9 (1.0-1.7) Lipase 103U/L (73-393) Laboratory Tests Test 05/02/16 03:50 White Blood Count 12.5x10^3/uL (4.0-11.0) Red Blood Count 3.60x10^6/uL (3.50-5.40) Hemoglobin 11.2g/dL (12.0-15.5) Hematocrit 33.5% (36.0-47.0) Mean Corpuscular Volume 93fL (79-100) Mean Corpuscular Hemoglobin 31pg (25-35) Mean Corpuscular Hemoglobin Concent 34g/dL (31-37) Red Cell Distribution Width 14.0% (11.5-14.5) Platelet Count 210x10^3/uL (140-400) Neutrophils (%) (Auto) 76% (31-73) Lymphocytes (%) (Auto) 12% (24-48) Monocytes (%) (Auto) 12% (0-9) Eosinophils (%) (Auto) 0% (0-3) Basophils (%) (Auto) 0% (0-3) Neutrophils # (Auto) 9.4x10^3uL (1.8-7.7) Lymphocytes # (Auto) 1.5x10^3/uL (1.0-4.8) Monocytes # (Auto) 1.5x10^3/uL (0.0-1.1) Eosinophils # (Auto) 0.0x10^3/uL (0.0-0.7) Basophils # (Auto) 0.1x10^3/uL (0.0-0.2) Sodium Level 142mmol/L (136-145) Potassium Level 4.4mmol/L (3.5-5.1) Chloride Level 107mmol/L (98-107) Carbon Dioxide Level 28mmol/L (21-32) Anion Gap 7 (6-14) Blood Urea Nitrogen 15mg/dL (7-20) Creatinine 0.7mg/dL (0.6-1.0) Estimated GFR (Cockcroft-Gault) 84.8 Glucose Level 134mg/dL (70-99) Calcium Level 7.9mg/dL (8.5-10.1) Problem List Problems Medical Problems: (1) Incarcerated ventral hernia Status: Acute Assessment/Plan POD 1 RUSSELL, repair recurrent VIH with mesh ambulate Problems: PEDRO ESCOTO MD May 02, 2016 10:06
[2016-05-02 11:00] VITALS: BP 121/47
[2016-05-02] MEDS: IV DEXTROSE 5%-LACT RINGERS 1,000 ML IV SCH ×2 (13:00→21:54)
[2016-05-02 15:00] VITALS: BP 135/54
--- NOTE | 2016-05-02 15:43 | PDOC ---
PROGRESS NOTES Chief Complaint Chief Complaint Incarcerated hernia ASSESSMENT AND PLAN: 1. Incarcerated ventral hernia with sbo: s/o ex lap with lysis of adhesions, repair of VIH with mesh on 05/[address] Otero. recovering appropriately 2. HTN: by hx. BP WNL w/o meds 3. HLD: statin to be reestarted 4. Anemia: normocytic, normochromic. acute blood loss w/surg and prob dilutional. in good range, monitor 5. Prophylaxis: lovenox, PPI Vitals Vitals Vital Signs Date Time Temp Pulse Resp B/P Pulse Ox O2 Delivery O2 Flow Rate FiO2 05/02/16 15:00 98.7 85 18 135/54 91 Room Air 98.7 05/02/16 10:22 2.0 Physical Exam General: Alert, Cooperative, No acute distress Heart: Regular rate, No murmurs Lungs: Clear Abdomen: Soft, Other (mild TTP throughout) Extremities: No clubbing, No edema Skin: No breakdown Labs LABS Laboratory Tests Test 05/02/16 03:50 White Blood Count 12.5x10^3/uL (4.0-11.0) Red Blood Count 3.60x10^6/uL (3.50-5.40) Hemoglobin 11.2g/dL (12.0-15.5) Hematocrit 33.5% (36.0-47.0) Mean Corpuscular Volume 93fL (79-100) Mean Corpuscular Hemoglobin 31pg (25-35) Mean Corpuscular Hemoglobin Concent 34g/dL (31-37) Red Cell Distribution Width 14.0% (11.5-14.5) Platelet Count 210x10^3/uL (140-400) Neutrophils (%) (Auto) 76% (31-73) Lymphocytes (%) (Auto) 12% (24-48) Monocytes (%) (Auto) 12% (0-9) Eosinophils (%) (Auto) 0% (0-3) Basophils (%) (Auto) 0% (0-3) Neutrophils # (Auto) 9.4x10^3uL (1.8-7.7) Lymphocytes # (Auto) 1.5x10^3/uL (1.0-4.8) Monocytes # (Auto) 1.5x10^3/uL (0.0-1.1) Eosinophils # (Auto) 0.0x10^3/uL (0.0-0.7) Basophils # (Auto) 0.1x10^3/uL (0.0-0.2) Sodium Level 142mmol/L (136-145) Potassium Level 4.4mmol/L (3.5-5.1) Chloride Level 107mmol/L (98-107) Carbon Dioxide Level 28mmol/L (21-32) Anion Gap 7 (6-14) Blood Urea Nitrogen 15mg/dL (7-20) Creatinine 0.7mg/dL (0.6-1.0) Estimated GFR (Cockcroft-Gault) 84.8 Glucose Level 134mg/dL (70-99) Calcium Level 7.9mg/dL (8.5-10.1) Review of Systems Review of Systems family visiting. denies severe pain. doing ok Comment Review of Relevant . ANTONIO PANDYA MD May 02, 2016 15:43
[2016-05-02 19:28] VITALS: BP 131/62
[2016-05-02] MEDS: FAMOTIDINE 20 MG/2 ML VIAL IVP SCH (21:54)
[2016-05-02 22:57] VITALS: BP 126/51
[2016-05-03 03:47] VITALS: BP 119/49
[2016-05-03] MEDS: KETOROLAC 15 MG/ML VIAL. IV SCH (06:02)
[2016-05-03 07:00] VITALS: BP 138/57
[2016-05-03] MEDS: MORPHINE SULFATE 2 MG/ML DISP.SYRIN. IV PRN ×3 (09:49→18:06)
--- NOTE | 2016-05-03 10:49 | PDOC ---
SURGICAL PROGRESS NOTE Subjective + flatus pain managed Vital Signs Vital Signs Date Time Temp Pulse Resp B/P Pulse Ox O2 Delivery O2 Flow Rate FiO2 05/03/16 09:49 18 Room Air 05/03/16 07:00 98.4 82 138/57 88 98.4 05/02/16 10:22 2.0 I&O Intake and Output 05/03/16 07:00 Intake Total 2023 ml Output Total 1335 ml Balance 688 ml Intake Oral 0 ml IV Total 773 ml Blood Product IV Normal Saline Flush 1250 ml Output Urine Total 975 ml Gastric Drainage Total 300 ml Drainage Total 60 ml # Voids 2 General: Alert, Oriented X3, Cooperative, No acute distress Abdomen: Soft, Other (incision dressing dry, guanaco serosang) Labs Laboratory Tests Test 05/02/16 03:50 White Blood Count 12.5x10^3/uL (4.0-11.0) Red Blood Count 3.60x10^6/uL (3.50-5.40) Hemoglobin 11.2g/dL (12.0-15.5) Hematocrit 33.5% (36.0-47.0) Mean Corpuscular Volume 93fL (79-100) Mean Corpuscular Hemoglobin 31pg (25-35) Mean Corpuscular Hemoglobin Concent 34g/dL (31-37) Red Cell Distribution Width 14.0% (11.5-14.5) Platelet Count 210x10^3/uL (140-400) Neutrophils (%) (Auto) 76% (31-73) Lymphocytes (%) (Auto) 12% (24-48) Monocytes (%) (Auto) 12% (0-9) Eosinophils (%) (Auto) 0% (0-3) Basophils (%) (Auto) 0% (0-3) Neutrophils # (Auto) 9.4x10^3uL (1.8-7.7) Lymphocytes # (Auto) 1.5x10^3/uL (1.0-4.8) Monocytes # (Auto) 1.5x10^3/uL (0.0-1.1) Eosinophils # (Auto) 0.0x10^3/uL (0.0-0.7) Basophils # (Auto) 0.1x10^3/uL (0.0-0.2) Sodium Level 142mmol/L (136-145) Potassium Level 4.4mmol/L (3.5-5.1) Chloride Level 107mmol/L (98-107) Carbon Dioxide Level 28mmol/L (21-32) Anion Gap 7 (6-14) Blood Urea Nitrogen 15mg/dL (7-20) Creatinine 0.7mg/dL (0.6-1.0) Estimated GFR (Cockcroft-Gault) 84.8 Glucose Level 134mg/dL (70-99) Calcium Level 7.9mg/dL (8.5-10.1) Problem List Problems Medical Problems: (1) Incarcerated ventral hernia Status: Acute Assessment/Plan POD#2 NG output 300cc, clamp NG--return to suction if n/v/distention Problems: RODDY DAVID APRN May 03, 2016 10:49
[2016-05-03 11:00] VITALS: BP 126/61
[2016-05-03] MEDS: IV DEXTROSE 5%-LACT RINGERS 1,000 ML IV SCH ×2 (11:27→22:04)
--- NOTE | 2016-05-03 14:07 | PDOC ---
PROGRESS NOTES Chief Complaint Chief Complaint Incarcerated hernia 1. abd pain with incarcerated ventral hernia with sbo post Exploratory laparotomy with lysis of adhesions, closure of ventral hernia with mesh on 05/01 2. HTN 3. HLD 4. h/o HERNIA repair plan: 1. fu with sx, clamp NGT today as per sx, npo 2. ivf 3. pain control 4. need home meds 5. dvt ppx gi ppx PTOT History of Present Illness History of Present Illness + flatus, + nausea, still on NG, with 300cc suction yesterday Vitals Vitals Vital Signs Date Time Temp Pulse Resp B/P Pulse Ox O2 Delivery O2 Flow Rate FiO2 05/03/16 12:56 20 Room Air 05/03/16 11:00 98.0 78 126/61 91 98.0 05/02/16 10:22 2.0 Physical Exam General: Alert, Oriented X3, Cooperative, No acute distress Heart: Regular rate, No murmurs Lungs: Clear Abdomen: Normal bowel sounds, Soft, Other (incision dressing dry, guanaco serosang, + tenderness) Extremities: No clubbing, No edema Skin: No breakdown Review of Systems Review of Systems no fever, chills, sob or chest pain Assessment and Plan Assessmemt and Plan Problems Medical Problems: (1) Incarcerated ventral hernia Status: Acute Problems: Comment Review of Relevant I have reviewed the following items stephanie (where applicable) has been applied. Labs Laboratory Tests Test 05/02/16 03:50 White Blood Count 12.5x10^3/uL (4.0-11.0) Red Blood Count 3.60x10^6/uL (3.50-5.40) Hemoglobin 11.2g/dL (12.0-15.5) Hematocrit 33.5% (36.0-47.0) Mean Corpuscular Volume 93fL (79-100) Mean Corpuscular Hemoglobin 31pg (25-35) Mean Corpuscular Hemoglobin Concent 34g/dL (31-37) Red Cell Distribution Width 14.0% (11.5-14.5) Platelet Count 210x10^3/uL (140-400) Neutrophils (%) (Auto) 76% (31-73) Lymphocytes (%) (Auto) 12% (24-48) Monocytes (%) (Auto) 12% (0-9) Eosinophils (%) (Auto) 0% (0-3) Basophils (%) (Auto) 0% (0-3) Neutrophils # (Auto) 9.4x10^3uL (1.8-7.7) Lymphocytes # (Auto) 1.5x10^3/uL (1.0-4.8) Monocytes # (Auto) 1.5x10^3/uL (0.0-1.1) Eosinophils # (Auto) 0.0x10^3/uL (0.0-0.7) Basophils # (Auto) 0.1x10^3/uL (0.0-0.2) Sodium Level 142mmol/L (136-145) Potassium Level 4.4mmol/L (3.5-5.1) Chloride Level 107mmol/L (98-107) Carbon Dioxide Level 28mmol/L (21-32) Anion Gap 7 (6-14) Blood Urea Nitrogen 15mg/dL (7-20) Creatinine 0.7mg/dL (0.6-1.0) Estimated GFR (Cockcroft-Gault) 84.8 Glucose Level 134mg/dL (70-99) Calcium Level 7.9mg/dL (8.5-10.1) Medications Current Medications Sodium Chloride (Iv Sodium Chloride 0.9% 1000ml Bag) 1,000 ml @ 1,000 mls/hr 1X ONCE IV Last administered on 04/30/16 22:08; Start 04/30/16 at 22:00; Stop 04/30/16 at 22:59; Status DC Hydromorphone HCl (Dilaudid) 1 mg 1X ONCE IV Last administered on 04/30/16 22: 07; Start 04/30/16 at 22:00; Stop 04/30/16 at 22:01; Status DC Ondansetron HCl (Zofran) 4 mg 1X ONCE IV Last administered on 04/30/16 22:06; Start 04/30/16 at 22:00; Stop 04/30/16 at 22:01; Status DC Ondansetron HCl (Zofran) 4 mg PRN Q8HRS PRN IV NAUSEA/VOMITING Last administered on 05/01/16 03:56; Start 04/30/16 at 23:15; Stop 05/01/16 at 15:12; Status DC Fentanyl Citrate 50 mcg 50 mcg PRN Q1HR PRN IV SEVERE PAIN Last administered on 05/01/16 14:55; Start 04/30/16 at 23:15; Stop 05/01/16 at 23:14; Status DC Sodium Chloride (Iv Sodium Chloride 0.9% 1000ml Bag) 1,000 ml @ 150 mls/hr Q6H40M IV Last administered on 05/01/16 14:28; Start 04/30/16 at 23:13; Stop 05/01/16 at 23:12; Status DC Ondansetron HCl (Zofran) 4 mg PRN Q6HRS PRN IV Nausea; Start 05/01/16 at 07:15; Stop 05/01/16 at 18:00; Status DC Fentanyl Citrate (Fentanyl 2ml Vial) 25 mcg PRN Q5MIN PRN IV MILD PAIN; Start 05/01/16 at 07:15; Stop 05/01/16 at 18:00; Status DC Fentanyl Citrate (Fentanyl 2ml Vial) 50 mcg PRN Q5MIN PRN IV MODERATE PAIN; Start 05/01/16 at 07:15; Stop 05/01/16 at 18:00; Status DC Morphine Sulfate 1 mg 1 mg PRN Q10MIN PRN IV SEVERE PAIN; Start 05/01/16 at 07: 15; Stop 05/01/16 at 18:00; Status DC Lactated Ringer's (Iv Lactated Ringers) 1,000 ml @ 30 mls/hr Q24H IV Last administered on 05/01/16 08:00; Start 05/01/16 at 07:11; Stop 05/01/16 at 19:10; Status DC Lidocaine HCl 2 ml 1X PRN PRN [place] IV START; Start 05/01/16 at 07:15; Stop at 18:00; Status DC Hydromorphone HCl (Dilaudid) 0.5 mg PRN Q10MIN PRN IV SEV PAIN,Second choice; Start 05/01/16 at 07:15; Stop 05/01/16 at 18:00; Status DC Prochlorperazine Edisylate 5 mg 5 mg PACU PRN PRN IV NAUSEA; Start 05/01/16 at 07:15; Stop 05/01/16 at 18:00; Status DC Cefoxitin Sodium (Mefoxin 2gm Ivpb For Omni) 100 ml @ As Directed STK-MED ONCE IV ; Start 05/01/16 at 08:13; Stop 05/01/16 at 08:14; Status DC Lidocaine HCl 100 mg STK-MED ONCE .ROUTE ; Start 05/01/16 at 08:15; Stop 05/01/16 at 08:16; Status DC Ondansetron HCl (Zofran) 4 mg STK-MED ONCE .ROUTE ; Start 05/01/16 at 08:15; Stop 05/01/16 at 08:16; Status DC Dexamethasone Sodium Phosphate 20 mg 20 mg STK-MED ONCE .ROUTE ; Start 05/01/16 at 08:15; Stop 05/01/16 at 08:16; Status DC Propofol (Diprivan) 20 ml @ As Directed STK-MED ONCE IV ; Start 05/01/16 at 08:15 ; Stop 05/01/16 at 08:16; Status DC Famotidine (Pepcid) 20 mg STK-MED ONCE .ROUTE ; Start 05/01/16 at 08:15; Stop 05/01/16 at 08:16; Status DC Fentanyl Citrate (Fentanyl 2ml Vial) 100 mcg STK-MED ONCE .ROUTE ; Start at 08:15; Stop 05/01/16 at 08:16; Status DC Rocuronium [place] (Zemuron) 50 mg STK-MED ONCE .ROUTE ; Start 05/01/16 at 08:15 ; Stop 05/01/16 at 08:16; Status DC Succinylcholine Chloride 200 mg 200 mg STK-MED ONCE .ROUTE ; Start 05/01/16 at 08 :27; Stop 05/01/16 at 08:28; Status DC Cefoxitin Sodium (Mefoxin 2gm Ivpb For Omni) 100 ml @ 200 mls/hr ONCE ONCE IV ; Start 05/01/16 at 08:45; Stop 05/01/16 at 09:14; Status DC Phenylephrine HCl 1 mg STK-MED ONCE IV ; Start 05/01/16 at 08:34; Stop 05/01/16 at 08:35; Status DC Morphine Sulfate 10 mg STK-MED ONCE .ROUTE ; Start 05/01/16 at 08:42; Stop at 08:43; Status DC Neostigmine Methylsulfate 5 mg STK-MED ONCE .ROUTE ; Start 05/01/16 at 10:07; Stop 05/01/16 at 10:08; Status DC Glycopyrrolate (Robinul) 1 mg STK-MED ONCE .ROUTE ; Start 05/01/16 at 10:07; Stop 05/01/16 at 10:08; Status DC Sodium Chloride (Normal Saline Flush) 3 ml QSHIFT PRN IV AFTER MEDS AND BLOOD DRAWS; Start 05/01/16 at 10:45 Morphine Sulfate 2 mg PRN Q3HRS PRN IV PAIN Last administered on 05/03/16 12:56 ; Start 05/01/16 at 10:45 Oxycodone/ Acetaminophen (Percocet 5/325) 1 tab PRN Q4HRS PRN PO MILD PAIN, 1ST CHOICE; Start 05/01/16 at 10:45 Oxycodone/ Acetaminophen (Percocet 5/325) 2 tab PRN Q4HRS PRN PO MODERATE PAIN , SEVERE PAIN; Start 05/01/16 at 10:45 Ketorolac Tromethamine (Toradol) 15 mg Q6HRS IV Last administered on 05/03/16 06:02; Start 05/01/16 at 12:00; Stop 05/03/16 at 11:59; Status DC Ondansetron HCl 4 mg 4 mg PRN Q6HRS PRN IV NAUSEA, 1ST CHOICE Last administered on 05/02/16 09:58; Start 05/01/16 at 10:45 Dextrose/Lactated Ringer's (Iv D5%-Lr) 1,000 ml @ 75 mls/hr [id number] IV Last administered on 05/03/16 11:27; Start 05/01/16 at 10:32 Sevoflurane (Ultane) 90 ml STK-MED ONCE IH ; Start 05/01/16 at 10:34; Stop at 10:35; Status DC Acetaminophen (Tylenol) 650 mg PRN Q6HRS PRN [place] MILD PAIN / TEMP; Start at 11:15 Hydralazine HCl (Apresoline) 10 mg PRN Q4HRS PRN IVP ELEVATED BP, SEE COMMENTS ; Start 05/01/16 at 11:15 Famotidine (Pepcid) 20 mg QHS IVP Last administered on 05/02/16t 21:54; Start at 21:00 Vitals/I & O Vital Sign - Last 24 Hours 05/02/16 05/02/16 05/02/16 05/02/16 15:00 19:28 20:06 22:57 Temp 98.7 99.4 98.6 98.7 99.4 98.6 Pulse 85 89 91 Resp 16 B/P 135/54 131/62 126/51 Pulse Ox 91 91 90 O2 Delivery Room Air Room Air Room Air Room Air 05/02/16 05/02/16 05/03/16 05/03/16 23:17 23:47 03:47 07:00 Temp 98.8 98.4 98.8 98.4 Pulse 80 82 Resp 20 19 16 18 B/P 119/49 138/57 Pulse Ox 90 88 O2 Delivery Room Air Room Air Room Air Room Air 05/03/16 05/03/16 05/03/16 09:49 11:00 12:56 Temp 98.0 98.0 Pulse 78 Resp 18 18 20 B/P 126/61 Pulse Ox 91 O2 Delivery Room Air Room Air Room Air Intake and Output 05/02/16 05/02/16 05/03/16 15:00 23:00 07:00 Intake Total 1250 ml 773 ml Output Total 385 ml 950 ml Balance 865 ml -177 ml COLEEN BROTHERS MD May 03, 2016 14:07
[2016-05-03 15:00] VITALS: BP 129/62
[2016-05-03] MEDS: ENOXAPARIN 40 MG/0.4 ML DISP.SYRIN. SQ SCH (17:58)
[2016-05-03 19:00] VITALS: BP 139/61
[2016-05-03] MEDS: FAMOTIDINE 20 MG/2 ML VIAL IVP SCH (21:54)
[2016-05-03 23:00] VITALS: BP 132/55
[2016-05-04 03:00] VITALS: BP 121/49
[2016-05-04] MEDS: MORPHINE SULFATE 2 MG/ML DISP.SYRIN. IV PRN ×2 (03:19→09:59)
[2016-05-04 07:00] VITALS: BP 129/64
[2016-05-04 07:19] LABS: BASO % 0 % (0-3); EOS % 6 % (0-3); HEMATOCRIT 32.8 % (36.0-47.0); HEMOGLOBIN 10.8 g/dL (12.0-15.5); LYMPH # 1.9 x10^3/uL (1.0-4.8); LYMPH % 23 % (24-48); MEAN CORPUSCULAR HEMOGLOBIN 31 pg (25-35); MEAN CORPUSCULAR HGB CONC 33 g/dL (31-37); MEAN CORPUSCULAR VOLUME 94 fL (79-100); MONO % 8 % (0-9); NEUT % 63 % (31-73); PLATELET COUNT 202 x10^3/uL (140-400); RED BLOOD COUNT 3.51 x10^6/uL (3.50-5.40); RED CELL DISTRIBUTION WIDTH 13.4 % (11.5-14.5); WHITE BLOOD COUNT 8.4 x10^3/uL (4.0-11.0)
[2016-05-04 07:41] LABS: CALCIUM 8.1 mg/dL (8.5-10.1); CREATININE 0.5 mg/dL (0.6-1.0); POTASSIUM 3.3 mmol/L (3.5-5.1)
[2016-05-04 11:00] VITALS: BP 120/60
--- NOTE | 2016-05-04 12:15 | PDOC ---
RODDY DAVID SENIOR APPLICATIONS DEVELOPER 05/04/16 1215: SURGICAL PROGRESS NOTE Subjective No pain at this time no n/v with NG clamped + flatus Vital Signs Vital Signs Date Time Temp Pulse Resp B/P Pulse Ox O2 Delivery O2 Flow Rate FiO2 05/04/16 11:00 98.1 72 14 120/60 92 Room Air 98.1 I&O Intake and Output 05/04/16 07:00 Intake Total 895 ml Output Total 680 ml Balance 215 ml IV Total 895 ml Output Urine Total 550 ml Gastric Drainage Total 50 ml Drainage Total 80 ml # Voids 3 General: Alert, Oriented X3, Cooperative, No acute distress Abdomen: Soft, Other (dressing dry, AMIRAH serosang) Labs Laboratory Tests Test 05/04/16 06:50 White Blood Count 8.4x10^3/uL (4.0-11.0) Red Blood Count 3.51x10^6/uL (3.50-5.40) Hemoglobin 10.8g/dL (12.0-15.5) Hematocrit 32.8% (36.0-47.0) Mean Corpuscular Volume 94fL (79-100) Mean Corpuscular Hemoglobin 31pg (25-35) Mean Corpuscular Hemoglobin Concent 33g/dL (31-37) Red Cell Distribution Width 13.4% (11.5-14.5) Platelet Count 202x10^3/uL (140-400) Neutrophils (%) (Auto) 63% (31-73) Lymphocytes (%) (Auto) 23% (24-48) Monocytes (%) (Auto) 8% (0-9) Eosinophils (%) (Auto) 6% (0-3) Basophils (%) (Auto) 0% (0-3) Neutrophils # (Auto) 5.3x10^3uL (1.8-7.7) Lymphocytes # (Auto) 1.9x10^3/uL (1.0-4.8) Monocytes # (Auto) 0.7x10^3/uL (0.0-1.1) Eosinophils # (Auto) 0.5x10^3/uL (0.0-0.7) Basophils # (Auto) 0.0x10^3/uL (0.0-0.2) Sodium Level 140mmol/L (136-145) Potassium Level 3.3mmol/L (3.5-5.1) Chloride Level 106mmol/L (98-107) Carbon Dioxide Level 26mmol/L (21-32) Anion Gap 8 (6-14) Blood Urea Nitrogen 7mg/dL (7-20) Creatinine 0.5mg/dL (0.6-1.0) Estimated GFR (Cockcroft-Gault) 125.0 Glucose Level 111mg/dL (70-99) Calcium Level 8.1mg/dL (8.5-10.1) Laboratory Tests Test 05/04/16 06:50 White Blood Count 8.4x10^3/uL (4.0-11.0) Red Blood Count 3.51x10^6/uL (3.50-5.40) Hemoglobin 10.8g/dL (12.0-15.5) Hematocrit 32.8% (36.0-47.0) Mean Corpuscular Volume 94fL (79-100) Mean Corpuscular Hemoglobin 31pg (25-35) Mean Corpuscular Hemoglobin Concent 33g/dL (31-37) Red Cell Distribution Width 13.4% (11.5-14.5) Platelet Count 202x10^3/uL (140-400) Neutrophils (%) (Auto) 63% (31-73) Lymphocytes (%) (Auto) 23% (24-48) Monocytes (%) (Auto) 8% (0-9) Eosinophils (%) (Auto) 6% (0-3) Basophils (%) (Auto) 0% (0-3) Neutrophils # (Auto) 5.3x10^3uL (1.8-7.7) Lymphocytes # (Auto) 1.9x10^3/uL (1.0-4.8) Monocytes # (Auto) 0.7x10^3/uL (0.0-1.1) Eosinophils # (Auto) 0.5x10^3/uL (0.0-0.7) Basophils # (Auto) 0.0x10^3/uL (0.0-0.2) Sodium Level 140mmol/L (136-145) Potassium Level 3.3mmol/L (3.5-5.1) Chloride Level 106mmol/L (98-107) Carbon Dioxide Level 26mmol/L (21-32) Anion Gap 8 (6-14) Blood Urea Nitrogen 7mg/dL (7-20) Creatinine 0.5mg/dL (0.6-1.0) Estimated GFR (Cockcroft-Gault) 125.0 Glucose Level 111mg/dL (70-99) Calcium Level 8.1mg/dL (8.5-10.1) Problem List Problems Medical Problems: (1) Incarcerated ventral hernia Status: Acute Assessment/Plan s/p xlap DC ng start clears ambulate Problems: KATHLEEN AGUIRRE MD 05/04/16 1544: SURGICAL PROGRESS NOTE Assessment/Plan Agree with Sony's assessment and plan. Problems: RODDY DAVID APRN May 04, 2016 12:15 KATHLEEN AGUIRRE MD May 04, 2016 15:44
[2016-05-04 15:00] VITALS: BP 128/59
--- NOTE | 2016-05-04 15:45 | PDOC ---
PROGRESS NOTES Chief Complaint Chief Complaint Incarcerated hernia, acute abd pain 1. abd pain with incarcerated ventral hernia with sbo post Exploratory laparotomy with lysis of adhesions, closure of ventral hernia with mesh on 05/01 2. HTN 3. HLD 4. h/o HERNIA repair History of Present Illness History of Present Illness NG tube out try clear liquids, some pain persists + flatus, nausea improved pain 5/10 Vitals Vitals Vital Signs Date Time Temp Pulse Resp B/P Pulse Ox O2 Delivery O2 Flow Rate FiO2 05/04/16 11:00 98.1 72 14 120/60 92 Room Air 98.1 Physical Exam General: Alert, Oriented X3, Cooperative, No acute distress Heart: Regular rate, No murmurs Lungs: Clear Abdomen: Soft, Other (dressing dry, AMIRAH serosang) Extremities: No clubbing, No edema Skin: No breakdown Labs LABS Laboratory Tests Test 05/04/16 06:50 White Blood Count 8.4x10^3/uL (4.0-11.0) Red Blood Count 3.51x10^6/uL (3.50-5.40) Hemoglobin 10.8g/dL (12.0-15.5) Hematocrit 32.8% (36.0-47.0) Mean Corpuscular Volume 94fL (79-100) Mean Corpuscular Hemoglobin 31pg (25-35) Mean Corpuscular Hemoglobin Concent 33g/dL (31-37) Red Cell Distribution Width 13.4% (11.5-14.5) Platelet Count 202x10^3/uL (140-400) Neutrophils (%) (Auto) 63% (31-73) Lymphocytes (%) (Auto) 23% (24-48) Monocytes (%) (Auto) 8% (0-9) Eosinophils (%) (Auto) 6% (0-3) Basophils (%) (Auto) 0% (0-3) Neutrophils # (Auto) 5.3x10^3uL (1.8-7.7) Lymphocytes # (Auto) 1.9x10^3/uL (1.0-4.8) Monocytes # (Auto) 0.7x10^3/uL (0.0-1.1) Eosinophils # (Auto) 0.5x10^3/uL (0.0-0.7) Basophils # (Auto) 0.0x10^3/uL (0.0-0.2) Sodium Level 140mmol/L (136-145) Potassium Level 3.3mmol/L (3.5-5.1) Chloride Level 106mmol/L (98-107) Carbon Dioxide Level 26mmol/L (21-32) Anion Gap 8 (6-14) Blood Urea Nitrogen 7mg/dL (7-20) Creatinine 0.5mg/dL (0.6-1.0) Estimated GFR (Cockcroft-Gault) 125.0 Glucose Level 111mg/dL (70-99) Calcium Level 8.1mg/dL (8.5-10.1) Review of Systems Review of Systems sx better pain some, 08/05 Assessment and Plan Assessmemt and Plan Problems Medical Problems: (1) Incarcerated ventral hernia Status: Acute Problems: Comment Review of Relevant I have reviewed the following items stephanie (where applicable) has been applied. Labs Laboratory Tests Test 05/04/16 06:50 White Blood Count 8.4x10^3/uL (4.0-11.0) Red Blood Count 3.51x10^6/uL (3.50-5.40) Hemoglobin 10.8g/dL (12.0-15.5) Hematocrit 32.8% (36.0-47.0) Mean Corpuscular Volume 94fL (79-100) Mean Corpuscular Hemoglobin 31pg (25-35) Mean Corpuscular Hemoglobin Concent 33g/dL (31-37) Red Cell Distribution Width 13.4% (11.5-14.5) Platelet Count 202x10^3/uL (140-400) Neutrophils (%) (Auto) 63% (31-73) Lymphocytes (%) (Auto) 23% (24-48) Monocytes (%) (Auto) 8% (0-9) Eosinophils (%) (Auto) 6% (0-3) Basophils (%) (Auto) 0% (0-3) Neutrophils # (Auto) 5.3x10^3uL (1.8-7.7) Lymphocytes # (Auto) 1.9x10^3/uL (1.0-4.8) Monocytes # (Auto) 0.7x10^3/uL (0.0-1.1) Eosinophils # (Auto) 0.5x10^3/uL (0.0-0.7) Basophils # (Auto) 0.0x10^3/uL (0.0-0.2) Sodium Level 140mmol/L (136-145) Potassium Level 3.3mmol/L (3.5-5.1) Chloride Level 106mmol/L (98-107) Carbon Dioxide Level 26mmol/L (21-32) Anion Gap 8 (6-14) Blood Urea Nitrogen 7mg/dL (7-20) Creatinine 0.5mg/dL (0.6-1.0) Estimated GFR (Cockcroft-Gault) 125.0 Glucose Level 111mg/dL (70-99) Calcium Level 8.1mg/dL (8.5-10.1) Laboratory Tests Test 05/04/16 06:50 White Blood Count 8.4x10^3/uL (4.0-11.0) Red Blood Count 3.51x10^6/uL (3.50-5.40) Hemoglobin 10.8g/dL (12.0-15.5) Hematocrit 32.8% (36.0-47.0) Mean Corpuscular Volume 94fL (79-100) Mean Corpuscular Hemoglobin 31pg (25-35) Mean Corpuscular Hemoglobin Concent 33g/dL (31-37) Red Cell Distribution Width 13.4% (11.5-14.5) Platelet Count 202x10^3/uL (140-400) Neutrophils (%) (Auto) 63% (31-73) Lymphocytes (%) (Auto) 23% (24-48) Monocytes (%) (Auto) 8% (0-9) Eosinophils (%) (Auto) 6% (0-3) Basophils (%) (Auto) 0% (0-3) Neutrophils # (Auto) 5.3x10^3uL (1.8-7.7) Lymphocytes # (Auto) 1.9x10^3/uL (1.0-4.8) Monocytes # (Auto) 0.7x10^3/uL (0.0-1.1) Eosinophils # (Auto) 0.5x10^3/uL (0.0-0.7) Basophils # (Auto) 0.0x10^3/uL (0.0-0.2) Sodium Level 140mmol/L (136-145) Potassium Level 3.3mmol/L (3.5-5.1) Chloride Level 106mmol/L (98-107) Carbon Dioxide Level 26mmol/L (21-32) Anion Gap 8 (6-14) Blood Urea Nitrogen 7mg/dL (7-20) Creatinine 0.5mg/dL (0.6-1.0) Estimated GFR (Cockcroft-Gault) 125.0 Glucose Level 111mg/dL (70-99) Calcium Level 8.1mg/dL (8.5-10.1) Medications Current Medications Sodium Chloride (Iv Sodium Chloride 0.9% 1000ml Bag) 1,000 ml @ 1,000 mls/hr 1X ONCE IV Last administered on 04/30/16 22:08; Start 04/30/16 at 22:00; Stop 04/30/16 at 22:59; Status DC Hydromorphone HCl (Dilaudid) 1 mg 1X ONCE IV Last administered on 04/30/16 22: 07; Start 04/30/16 at 22:00; Stop 04/30/16 at 22:01; Status DC Ondansetron HCl (Zofran) 4 mg 1X ONCE IV Last administered on 04/30/16 22:06; Start 04/30/16 at 22:00; Stop 04/30/16 at 22:01; Status DC Ondansetron HCl (Zofran) 4 mg PRN Q8HRS PRN IV NAUSEA/VOMITING Last administered on 05/01/16 03:56; Start 04/30/16 at 23:15; Stop 05/01/16 at 15:12; Status DC Fentanyl Citrate 50 mcg 50 mcg PRN Q1HR PRN IV SEVERE PAIN Last administered on 05/01/16 14:55; Start 04/30/16 at 23:15; Stop 05/01/16 at 23:14; Status DC Sodium Chloride (Iv Sodium Chloride 0.9% 1000ml Bag) 1,000 ml @ 150 mls/hr Q6H40M IV Last administered on 05/01/16 14:28; Start 04/30/16 at 23:13; Stop 05/01/16 at 23:12; Status DC Ondansetron HCl (Zofran) 4 mg PRN Q6HRS PRN IV Nausea; Start 05/01/16 at 07:15; Stop 05/01/16 at 18:00; Status DC Fentanyl Citrate (Fentanyl 2ml Vial) 25 mcg PRN Q5MIN PRN IV MILD PAIN; Start 05/01/16 at 07:15; Stop 05/01/16 at 18:00; Status DC Fentanyl Citrate (Fentanyl 2ml Vial) 50 mcg PRN Q5MIN PRN IV MODERATE PAIN; Start 05/01/16 at 07:15; Stop 05/01/16 at 18:00; Status DC Morphine Sulfate 1 mg 1 mg PRN Q10MIN PRN IV SEVERE PAIN; Start 05/01/16 at 07: 15; Stop 05/01/16 at 18:00; Status DC Lactated Ringer's (Iv Lactated Ringers) 1,000 ml @ 30 mls/hr Q24H IV Last administered on 05/01/16t 08:00; Start 05/01/16 at 07:11; Stop 05/01/16 at 19:10; Status DC Lidocaine HCl 2 ml 1X PRN PRN ID IV START; Start 05/01/16 at 07:15; Stop at 18:00; Status DC Hydromorphone HCl (Dilaudid) 0.5 mg PRN Q10MIN PRN IV SEV PAIN,Second choice; Start 05/01/16 at 07:15; Stop 05/01/16 at 18:00; Status DC Prochlorperazine Edisylate 5 mg 5 mg PACU PRN PRN IV NAUSEA; Start 05/01/16 at 07:15; Stop 05/01/16 at 18:00; Status DC Cefoxitin Sodium (Mefoxin 2gm Ivpb For Omni) 100 ml @ As Directed STK-MED ONCE IV ; Start 05/01/16 at 08:13; Stop 05/01/16 at 08:14; Status DC Lidocaine HCl 100 mg STK-MED ONCE .ROUTE ; Start 05/01/16 at 08:15; Stop 05/01/16 at 08:16; Status DC Ondansetron HCl (Zofran) 4 mg STK-MED ONCE .ROUTE ; Start 05/01/16 at 08:15; Stop 05/01/16 at 08:16; Status DC Dexamethasone Sodium Phosphate 20 mg 20 mg STK-MED ONCE .ROUTE ; Start 05/01/16 at 08:15; Stop 05/01/16 at 08:16; Status DC Propofol (Diprivan) 20 ml @ As Directed STK-MED ONCE IV ; Start 05/01/16 at 08:15 ; Stop 05/01/16 at 08:16; Status DC Famotidine (Pepcid) 20 mg STK-MED ONCE .ROUTE ; Start 05/01/16 at 08:15; Stop 05/01/16 at 08:16; Status DC Fentanyl Citrate (Fentanyl 2ml Vial) 100 mcg STK-MED ONCE .ROUTE ; Start at 08:15; Stop 05/01/16 at 08:16; Status DC Rocuronium [place] (Zemuron) 50 mg STK-MED ONCE .ROUTE ; Start 05/01/16 at 08:15 ; Stop 05/01/16 at 08:16; Status DC Succinylcholine Chloride 200 mg 200 mg STK-MED ONCE .ROUTE ; Start 05/01/16 at 08 :27; Stop 05/01/16 at 08:28; Status DC Cefoxitin Sodium (Mefoxin 2gm Ivpb For Omni) 100 ml @ 200 mls/hr ONCE ONCE IV ; Start 05/01/16 at 08:45; Stop 05/01/16 at 09:14; Status DC Phenylephrine HCl 1 mg STK-MED ONCE IV ; Start 05/01/16 at 08:34; Stop 05/01/16 at 08:35; Status DC Morphine Sulfate 10 mg STK-MED ONCE .ROUTE ; Start 05/01/16 at 08:42; Stop at 08:43; Status DC Neostigmine Methylsulfate 5 mg STK-MED ONCE .ROUTE ; Start 05/01/16 at 10:07; Stop 05/01/16 at 10:08; Status DC Glycopyrrolate (Robinul) 1 mg STK-MED ONCE .ROUTE ; Start 05/01/16 at 10:07; Stop 05/01/16 at 10:08; Status DC Sodium Chloride (Normal Saline Flush) 3 ml QSHIFT PRN IV AFTER MEDS AND BLOOD DRAWS; Start 05/01/16 at 10:45 Morphine Sulfate 2 mg PRN Q3HRS PRN IV PAIN Last administered on 05/04/16 09:59 ; Start 05/01/16 at 10:45 Oxycodone/ Acetaminophen (Percocet 5/325) 1 tab PRN Q4HRS PRN PO MILD PAIN, 1ST CHOICE; Start 05/01/16 at 10:45 Oxycodone/ Acetaminophen (Percocet 5/325) 2 tab PRN Q4HRS PRN PO MODERATE PAIN , SEVERE PAIN; Start 05/01/16 at 10:45 Ketorolac Tromethamine (Toradol) 15 mg Q6HRS IV Last administered on 05/03/16 06:02; Start 05/01/16 at 12:00; Stop 05/03/16 at 11:59; Status DC Ondansetron HCl 4 mg 4 mg PRN Q6HRS PRN IV NAUSEA, 1ST CHOICE Last administered on 05/02/16 09:58; Start 05/01/16 at 10:45 Dextrose/Lactated Ringer's (Iv D5%-Lr) 1,000 ml @ 75 mls/hr [id number] IV Last administered on 05/03/16 22:04; Start 05/01/16 at 10:32 Sevoflurane (Ultane) 90 ml STK-MED ONCE IH ; Start 05/01/16 at 10:34; Stop at 10:35; Status DC Acetaminophen (Tylenol) 650 mg PRN Q6HRS PRN [place] MILD PAIN / TEMP; Start at 11:15 Hydralazine HCl (Apresoline) 10 mg PRN Q4HRS PRN IVP ELEVATED BP, SEE COMMENTS ; Start 05/01/16 at 11:15 Famotidine (Pepcid) 20 mg QHS IVP Last administered on 05/03/16 21:54; Start at 21:00 Enoxaparin Sodium (Lovenox 40mg Syringe) 40 mg Q24H SQ Last administered on 05/03 17:58; Start 05/03/16 at 14:15 Cefoxitin Sodium (Mefoxin 2gm Ivpb For Omni) 2 gm STK-MED ONCE IV ; Start at 08:00; Stop 05/04/16 at 08:23; Status DC Vitals/I & O Vital Sign - Last 24 Hours 05/03/16 05/03/16 05/03/16 05/03/16 18:06 19:00 20:00 23:00 Temp 98.7 97.8 98.7 97.8 Pulse 80 81 Resp 18 18 18 B/P 139/61 132/55 Pulse Ox 91 93 O2 Delivery Room Air Room Air Room Air Room Air 05/04/16 05/04/16 05/04/16 05/04/16 03:00 03:19 03:50 07:00 Temp 98.5 98.5 98.5 98.5 Pulse 73 73 Resp 18 16 16 16 B/P 121/49 129/64 Pulse Ox 95 92 O2 Delivery Room Air Room Air Room Air 05/04/16 05/04/16 05/04/16 05/04/16 07:50 09:59 10:35 11:00 Temp 98.1 98.1 Pulse 72 Resp 14 B/P 120/60 Pulse Ox 92 O2 Delivery Room Air Room Air Room Air Room Air Intake and Output 05/03/16 05/03/16 05/04/16 15:00 23:00 07:00 Intake Total 895 ml Output Total 680 ml Balance 215 ml SANDOR SEQUEIRA MD May 04, 2016 15:45
[2016-05-04] MEDS: ENOXAPARIN 40 MG/0.4 ML DISP.SYRIN. SQ SCH (16:50)
[2016-05-04 19:00] VITALS: BP_SYST 115; BP_SYST 139; BP_DIAS 61; BP_DIAS 62
[2016-05-04] MEDS: FAMOTIDINE 20 MG/2 ML VIAL IVP SCH (21:14)
[2016-05-04 23:00] VITALS: BP 113/36
[2016-05-05 03:00] VITALS: BP 101/50
[2016-05-05 07:00] VITALS: BP 119/56
--- NOTE | 2016-05-05 08:55 | PDOC ---
SURGICAL PROGRESS NOTE Subjective Doing well, no nausea. Passing flatus no BM. Tolerating diet Vital Signs Vital Signs Date Time Temp Pulse Resp B/P Pulse Ox O2 Delivery O2 Flow Rate FiO2 05/05/16 07:20 Room Air 05/05/16 07:00 97.9 74 18 119/56 94 97.9 I&O Intake and Output 05/05/16 07:00 Intake Total 180 ml Output Total 85 ml Balance 95 ml Intake Oral 180 ml Drainage Total 85 ml # Voids 3 PATIENT HAS A FREY: No General: Alert, Oriented X3, Cooperative, No acute distress Abdomen: Normal bowel sounds, Soft, No tenderness, Other (Wound c/d/i AMIRAH with serous drainage) Labs Laboratory Tests Test 05/04/16 06:50 White Blood Count 8.4x10^3/uL (4.0-11.0) Red Blood Count 3.51x10^6/uL (3.50-5.40) Hemoglobin 10.8g/dL (12.0-15.5) Hematocrit 32.8% (36.0-47.0) Mean Corpuscular Volume 94fL (79-100) Mean Corpuscular Hemoglobin 31pg (25-35) Mean Corpuscular Hemoglobin Concent 33g/dL (31-37) Red Cell Distribution Width 13.4% (11.5-14.5) Platelet Count 202x10^3/uL (140-400) Neutrophils (%) (Auto) 63% (31-73) Lymphocytes (%) (Auto) 23% (24-48) Monocytes (%) (Auto) 8% (0-9) Eosinophils (%) (Auto) 6% (0-3) Basophils (%) (Auto) 0% (0-3) Neutrophils # (Auto) 5.3x10^3uL (1.8-7.7) Lymphocytes # (Auto) 1.9x10^3/uL (1.0-4.8) Monocytes # (Auto) 0.7x10^3/uL (0.0-1.1) Eosinophils # (Auto) 0.5x10^3/uL (0.0-0.7) Basophils # (Auto) 0.0x10^3/uL (0.0-0.2) Sodium Level 140mmol/L (136-145) Potassium Level 3.3mmol/L (3.5-5.1) Chloride Level 106mmol/L (98-107) Carbon Dioxide Level 26mmol/L (21-32) Anion Gap 8 (6-14) Blood Urea Nitrogen 7mg/dL (7-20) Creatinine 0.5mg/dL (0.6-1.0) Estimated GFR (Cockcroft-Gault) 125.0 Glucose Level 111mg/dL (70-99) Calcium Level 8.1mg/dL (8.5-10.1) Problem List Problems Medical Problems: (1) Incarcerated ventral hernia Status: Acute Assessment/Plan s/p xlap with VIH repair Adv diet Problems: KATHLEEN AGUIRRE MD May 05, 2016 08:55
[2016-05-05 11:00] VITALS: BP 124/62
--- NOTE | 2016-05-05 12:30 | PDOC ---
PROGRESS NOTES Chief Complaint Chief Complaint Incarcerated hernia, A/P 1. abdominal pain with incarcerated ventral hernia S/P post Exploratory laparotomy with lysis of adhesions, closure of ventral hernia with mesh on 05/01 2. HTN 3. HLD 4. h/o HERNIA repair plan Pain control iv morphine advance diet per surgery IV Pepcid supportive care. History of Present Illness History of Present Illness NG tube out try clear liquids, some pain persists + flatus, nausea improved pain 5/10 Vitals Vitals Vital Signs Date Time Temp Pulse Resp B/P Pulse Ox O2 Delivery O2 Flow Rate FiO2 05/05/16 11:00 97.8 70 16 124/62 96 Room Air 97.8 Physical Exam General: Alert, Oriented X3, Cooperative, No acute distress Heart: Regular rate, Normal S1, No murmurs Lungs: Clear Abdomen: Normal bowel sounds, Soft, No tenderness, Other Extremities: No clubbing, No edema Skin: No breakdown Assessment and Plan Assessmemt and Plan Problems Medical Problems: (1) Incarcerated ventral hernia Status: Acute Problems: Comment Review of Relevant I have reviewed the following items stephanie (where applicable) has been applied. Labs Laboratory Tests Test 05/04/16 06:50 White Blood Count 8.4x10^3/uL (4.0-11.0) Red Blood Count 3.51x10^6/uL (3.50-5.40) Hemoglobin 10.8g/dL (12.0-15.5) Hematocrit 32.8% (36.0-47.0) Mean Corpuscular Volume 94fL (79-100) Mean Corpuscular Hemoglobin 31pg (25-35) Mean Corpuscular Hemoglobin Concent 33g/dL (31-37) Red Cell Distribution Width 13.4% (11.5-14.5) Platelet Count 202x10^3/uL (140-400) Neutrophils (%) (Auto) 63% (31-73) Lymphocytes (%) (Auto) 23% (24-48) Monocytes (%) (Auto) 8% (0-9) Eosinophils (%) (Auto) 6% (0-3) Basophils (%) (Auto) 0% (0-3) Neutrophils # (Auto) 5.3x10^3uL (1.8-7.7) Lymphocytes # (Auto) 1.9x10^3/uL (1.0-4.8) Monocytes # (Auto) 0.7x10^3/uL (0.0-1.1) Eosinophils # (Auto) 0.5x10^3/uL (0.0-0.7) Basophils # (Auto) 0.0x10^3/uL (0.0-0.2) Sodium Level 140mmol/L (136-145) Potassium Level 3.3mmol/L (3.5-5.1) Chloride Level 106mmol/L (98-107) Carbon Dioxide Level 26mmol/L (21-32) Anion Gap 8 (6-14) Blood Urea Nitrogen 7mg/dL (7-20) Creatinine 0.5mg/dL (0.6-1.0) Estimated GFR (Cockcroft-Gault) 125.0 Glucose Level 111mg/dL (70-99) Calcium Level 8.1mg/dL (8.5-10.1) Medications Current Medications Sodium Chloride (Iv Sodium Chloride 0.9% 1000ml Bag) 1,000 ml @ 1,000 mls/hr 1X ONCE IV Last administered on 04/30/16 22:08; Start 04/30/16 at 22:00; Stop 04/30/16 at 22:59; Status DC Hydromorphone HCl (Dilaudid) 1 mg 1X ONCE IV Last administered on 04/30/16 22: 07; Start 04/30/16 at 22:00; Stop 04/30/16 at 22:01; Status DC Ondansetron HCl (Zofran) 4 mg 1X ONCE IV Last administered on 04/30/16 22:06; Start 04/30/16 at 22:00; Stop 04/30/16 at 22:01; Status DC Ondansetron HCl (Zofran) 4 mg PRN Q8HRS PRN IV NAUSEA/VOMITING Last administered on 05/01/16 03:56; Start 04/30/16 at 23:15; Stop 05/01/16 at 15:12; Status DC Fentanyl Citrate 50 mcg 50 mcg PRN Q1HR PRN IV SEVERE PAIN Last administered on 05/01/16 14:55; Start 04/30/16 at 23:15; Stop 05/01/16 at 23:14; Status DC Sodium Chloride (Iv Sodium Chloride 0.9% 1000ml Bag) 1,000 ml @ 150 mls/hr Q6H40M IV Last administered on 05/01/16 14:28; Start 04/30/16 at 23:13; Stop 05/01/16 at 23:12; Status DC Ondansetron HCl (Zofran) 4 mg PRN Q6HRS PRN IV Nausea; Start 05/01/16 at 07:15; Stop 05/01/16 at 18:00; Status DC Fentanyl Citrate (Fentanyl 2ml Vial) 25 mcg PRN Q5MIN PRN IV MILD PAIN; Start 05/01/16 at 07:15; Stop 05/01/16 at 18:00; Status DC Fentanyl Citrate (Fentanyl 2ml Vial) 50 mcg PRN Q5MIN PRN IV MODERATE PAIN; Start 05/01/16 at 07:15; Stop 05/01/16 at 18:00; Status DC Morphine Sulfate 1 mg 1 mg PRN Q10MIN PRN IV SEVERE PAIN; Start 05/01/16 at 07: 15; Stop 05/01/16 at 18:00; Status DC Lactated Ringer's (Iv Lactated Ringers) 1,000 ml @ 30 mls/hr Q24H IV Last administered on 05/01/16 08:00; Start 05/01/16 at 07:11; Stop 05/01/16 at 19:10; Status DC Lidocaine HCl 2 ml 1X PRN PRN ID IV START; Start 05/01/16 at 07:15; Stop at 18:00; Status DC Hydromorphone HCl (Dilaudid) 0.5 mg PRN Q10MIN PRN IV SEV PAIN,Second choice; Start 05/01/16 at 07:15; Stop 05/01/16 at 18:00; Status DC Prochlorperazine Edisylate 5 mg 5 mg PACU PRN PRN IV NAUSEA; Start 05/01/16 at 07:15; Stop 05/01/16 at 18:00; Status DC Cefoxitin Sodium (Mefoxin 2gm Ivpb For Omni) 100 ml @ As Directed STK-MED ONCE IV ; Start 05/01/16 at 08:13; Stop 05/01/16 at 08:14; Status DC Lidocaine HCl 100 mg STK-MED ONCE .ROUTE ; Start 05/01/16 at 08:15; Stop 05/01/16 at 08:16; Status DC Ondansetron HCl (Zofran) 4 mg STK-MED ONCE .ROUTE ; Start 05/01/16 at 08:15; Stop 05/01/16 at 08:16; Status DC Dexamethasone Sodium Phosphate 20 mg 20 mg STK-MED ONCE .ROUTE ; Start 05/01/16 at 08:15; Stop 05/01/16 at 08:16; Status DC Propofol (Diprivan) 20 ml @ As Directed STK-MED ONCE IV ; Start 05/01/16 at 08:15 ; Stop 05/01/16 at 08:16; Status DC Famotidine (Pepcid) 20 mg STK-MED ONCE .ROUTE ; Start 05/01/16 at 08:15; Stop 05/01/16 at 08:16; Status DC Fentanyl Citrate (Fentanyl 2ml Vial) 100 mcg STK-MED ONCE .ROUTE ; Start at 08:15; Stop 05/01/16 at 08:16; Status DC Rocuronium [place] (Zemuron) 50 mg STK-MED ONCE .ROUTE ; Start 05/01/16 at 08:15 ; Stop 05/01/16 at 08:16; Status DC Succinylcholine Chloride 200 mg 200 mg STK-MED ONCE .ROUTE ; Start 05/01/16 at 08 :27; Stop 05/01/16 at 08:28; Status DC Cefoxitin Sodium (Mefoxin 2gm Ivpb For Omni) 100 ml @ 200 mls/hr ONCE ONCE IV ; Start 05/01/16 at 08:45; Stop 05/01/16 at 09:14; Status DC Phenylephrine HCl 1 mg STK-MED ONCE IV ; Start 05/01/16 at 08:34; Stop 05/01/16 at 08:35; Status DC Morphine Sulfate 10 mg STK-MED ONCE .ROUTE ; Start 05/01/16 at 08:42; Stop at 08:43; Status DC Neostigmine Methylsulfate 5 mg STK-MED ONCE .ROUTE ; Start 05/01/16 at 10:07; Stop 05/01/16 at 10:08; Status DC Glycopyrrolate (Robinul) 1 mg STK-MED ONCE .ROUTE ; Start 05/01/16 at 10:07; Stop 05/01/16 at 10:08; Status DC Sodium Chloride (Normal Saline Flush) 3 ml QSHIFT PRN IV AFTER MEDS AND BLOOD DRAWS; Start 05/01/16 at 10:45 Morphine Sulfate 2 mg PRN Q3HRS PRN IV PAIN Last administered on 05/04/16 09:59 ; Start 05/01/16 at 10:45 Oxycodone/ Acetaminophen (Percocet 5/325) 1 tab PRN Q4HRS PRN PO MILD PAIN, 1ST CHOICE Last administered on 05/04/16 21:14; Start 05/01/16 at 10:45 Oxycodone/ Acetaminophen (Percocet 5/325) 2 tab PRN Q4HRS PRN PO MODERATE PAIN , SEVERE PAIN; Start 05/01/16 at 10:45 Ketorolac Tromethamine (Toradol) 15 mg Q6HRS IV Last administered on 05/03/16 06:02; Start 05/01/16 at 12:00; Stop 05/03/16 at 11:59; Status DC Ondansetron HCl 4 mg 4 mg PRN Q6HRS PRN IV NAUSEA, 1ST CHOICE Last administered on 05/02/16 09:58; Start 05/01/16 at 10:45 Dextrose/Lactated Ringer's (Iv D5%-Lr) 1,000 ml @ 75 mls/hr [id number] IV Last administered on 05/03/16 22:04; Start 05/01/16 at 10:32; Stop 05/04/16 at 15:58; Status DC Sevoflurane (Ultane) 90 ml STK-MED ONCE IH ; Start 05/01/16 at 10:34; Stop at 10:35; Status DC Acetaminophen (Tylenol) 650 mg PRN Q6HRS PRN MS MILD PAIN / TEMP; Start at 11:15 Hydralazine HCl (Apresoline) 10 mg PRN Q4HRS PRN IVP ELEVATED BP, SEE COMMENTS ; Start 05/01/16 at 11:15 Famotidine (Pepcid) 20 mg QHS IVP Last administered on 05/04/16 21:14; Start at 21:00 Enoxaparin Sodium (Lovenox 40mg Syringe) 40 mg Q24H SQ Last administered on 05/04t 16:50; Start 05/03/16 at 14:15 Cefoxitin Sodium (Mefoxin 2gm Ivpb For Omni) 2 gm STK-MED ONCE IV ; Start at 08:00; Stop 05/04/16 at 08:23; Status DC Vitals/I & O Vital Sign - Last 24 Hours 05/04/16 05/04/16 05/04/16 05/04/16 15:00 19:00 20:00 21:14 Temp 98.0 97.9 98.0 97.9 Pulse 71 84 Resp 14 18 B/P 128/59 139/61 Pulse Ox 94 94 O2 Delivery Room Air Room Air Room Air Room Air 05/04/16 05/04/16 05/05/16 05/05/16 22:00 23:00 03:00 07:00 Temp 98.1 97.9 97.9 98.1 97.9 97.9 Pulse 76 70 74 Resp 18 16 18 B/P 113/36 101/50 119/56 Pulse Ox 95 95 94 O2 Delivery Room Air Room Air Room Air Room Air 05/05/16 05/05/16 07:20 11:00 Temp 97.8 97.8 Pulse 70 Resp 16 B/P 124/62 Pulse Ox 96 O2 Delivery Room Air Room Air Intake and Output 05/04/16 05/04/16 05/05/16 15:00 23:00 07:00 Intake Total 180 ml Output Total 60 ml 25 ml Balance -60 ml 155 ml KALPESH BAUGH MD May 05, 2016 12:30
[2016-05-05 15:00] VITALS: BP 102/55
[2016-05-05] MEDS: ENOXAPARIN 40 MG/0.4 ML DISP.SYRIN. SQ SCH (17:08)
[2016-05-05 19:00] VITALS: BP 101/37
[2016-05-05] MEDS: FAMOTIDINE 20 MG/2 ML VIAL IVP SCH (20:53)
[2016-05-05] MEDS: FAMOTIDINE 20 MG TABLET. PO SCH (21:33)
[2016-05-05 23:00] VITALS: BP 115/62
[2016-05-06 03:00] VITALS: BP 112/67
[2016-05-06 07:00] VITALS: BP 124/61
[2016-05-06] MEDS: FAMOTIDINE 20 MG TABLET. PO SCH (08:30)
[2016-05-06] MEDS ORDERED: DOCUSATE SODIUM 100 MG CAPSULE PO SCH (09:00)
--- NOTE | 2016-05-06 09:04 | DISCH ---
DISCHARGE INSTRUCTIONS Condition on Discharge Condition on Discharge: Stable Activity After Discharge Activity Instructions for Disc: Avoid exertion Other activity instructions: No lifting >20LBS Follow-Up Follow up with: Dr Aguirre in 1 week KATHLEEN AGUIRRE MD May 06, 2016 09:04
--- NOTE | 2016-05-06 09:04 | PDOC ---
SURGICAL PROGRESS NOTE Subjective She is doing well, tolerating diet. Has had BM Vital Signs Vital Signs Date Time Temp Pulse Resp B/P Pulse Ox O2 Delivery O2 Flow Rate FiO2 05/06/16 07:32 Room Air 05/06/16 07:00 98.6 73 18 124/61 97 98.6 I&O Intake and Output 05/06/16 07:00 Output Total 40 ml Balance -40 ml Drainage Total 40 ml # Voids 7 PATIENT HAS A FREY: No General: Alert, Oriented X3, Cooperative, No acute distress Abdomen: Normal bowel sounds, Soft, No tenderness, Other (wound c/d/i AMIRAH with copious amount of serous output) Problem List Problems Medical Problems: (1) Incarcerated ventral hernia Status: Acute Assessment/Plan S/P xlap for SBO and repair of VIH OK to D/C if tolerates diet from Surgical POV Keep AMIRAH drain F/U in one week for drain removal Problems: KATHLEEN AGUIRRE MD May 06, 2016 09:04
[2016-05-06] MEDS ORDERED: HYDR-971 PO (10:52)
[2016-05-06 11:00] VITALS: BP 129/64
--- NOTE | 2016-05-07 02:35 | DS ---
DATE OF DISCHARGE: 05/06/2016 DISCHARGE DIAGNOSES: 1. Abdominal pain due to incarcerated ventral hernia, status post exploratory laparotomy with lysis of adhesions. Closure of ventral hernia with mesh on 05/01/2016. 2. Hypertension, stable. 3. Hyperlipidemia. 4. Prior history of hernia repair. BRIEF HOSPITAL COURSE: This 61-year-old female patient admitted to the hospital on 05/01/2016 for abdominal pain. The patient was diagnosed for incarcerated hernia and she was evaluated by general surgery and on 05/01/2016, she had exploratory laparotomy by Dr. Otero. Postoperatively, the patient's symptoms improved with symptomatic management and today, she could tolerate diet very well and no complications seen after a full regular diet. The patient has been cleared by General Surgery, sent home in stable condition and recommended to follow up with Dr. Otero and AMIRAH drain in place. The patient needs to see Dr. Oetro in 1-2 weeks. DISCHARGE EXAMINATION: GENERAL: Alert, oriented x 3. HEART: S1, S2 present. LUNGS: Clear to auscultation. ABDOMEN: Soft, nontender. Wound healing stage, AMIRAH drain present. EXTREMITIES: +1 edema. DISCHARGE DISPOSITION: Home. DISCHARGE CONDITION: Stable. DISCHARGE MEDICATIONS: 1. Hydrocodone 5/325 b.i.d. p.r.n. for pain. 2. Follow up with Dr. Otero in 1-2 weeks. Total time spent for discharge is 32 minutes for patient education, counseling, and coordination of care and physical examination. KALPESH BAUGH MD DR: RIAZ/julio JOB#: [id number] / [id number]
== END 2016-05-06 14:15 | disposition home or self-care (01) | DRG 336 ==
LOC: ER 21:19 → 4 NORTH 23:26
PROVIDERS: ADMIT Internal Medicine Hematology & Oncology; ATTEND Internal Medicine Hematology & Oncology
PROC: 0DNE0ZZ Release Large Intestine, Open Approach (ICD-10-PCS; 2016-05-01)
PROC: 0WUF0JZ Supplement Abdominal Wall with Synthetic Substitute, Open Approach (ICD-10-PCS; principal; 2016-05-01 08:45)
DX: K43.0 Incisional hernia with obstruction, without gangrene (principal); D62 Acute posthemorrhagic anemia; I10 Essential (primary) hypertension; E78.5 Hyperlipidemia, unspecified; E78.00 Pure hypercholesterolemia, unspecified; K66.0 Peritoneal adhesions (postprocedural) (postinfection); Z79.899 Other long term (current) drug therapy
CPT/HCPCS: 36415; 74176; 80048; 80053; 81001; 83605; 83690; 85027; 96361; 96374; 96375; C1781; J0330; J0694; J1100; J1170; J1650; J1885; J2270; J2370; J2405; J2704; J2710; J3010; J3490; J7030; J7120; S0028; 99285-25

== ENCOUNTER 2021-08-25 12:50 | Emergency (ER) | payer SELFPAY ==
[~2021-08-25] VITALS: Ht 152.4 cm; Wt 72.4 kg
[~2021-08-25 12:50] MED LIST: HYDR-3164 PO
[2021-08-25] MEDS ORDERED: KETOROLAC 30 MG/ML VIAL. IVP PRN (13:30)
[2021-08-25] MEDS ORDERED: IV RINGERS,LACTATED 1000ML 1,000 ML IV SCH (13:30)
[2021-08-25 13:38] LABS: BASO % 1 % (0-3); EOS # 0.1 x10^3/uL (0.0-0.7); EOS % 2 % (0-3); HEMATOCRIT 41.4 % (36.0-47.0); HEMOGLOBIN 13.9 g/dL (12.0-15.5); LYMPH # 2.2 x10^3/uL (1.0-4.8); LYMPH % 33 % (24-48); MEAN CORPUSCULAR HEMOGLOBIN 32 pg (25-35); MEAN CORPUSCULAR HGB CONC 34 g/dL (31-37); MEAN CORPUSCULAR VOLUME 95 fL (79-100); MONO # 0.6 x10^3/uL (0.0-1.1); MONO % 9 % (0-9); NEUT # 3.8 x10^3/uL (1.8-7.7); NEUT % 55 % (31-73); PLATELET COUNT 244 x10^3/uL (140-400); RED BLOOD COUNT 4.35 x10^6/uL (3.50-5.40); RED CELL DISTRIBUTION WIDTH 13.7 % (11.5-14.5); WHITE BLOOD COUNT 6.8 x10^3/uL (4.0-11.0)
[2021-08-25 13:49] LABS: CALCIUM 9.2 mg/dL (8.5-10.1); CREATININE 0.5 mg/dL (0.6-1.0); GFR 123.1; POTASSIUM 4.3 mmol/L (3.5-5.1)
[2021-08-25 13:54] LABS: ALBUMIN 3.8 g/dL (3.4-5.0); TOTAL BILIRUBIN 0.6 mg/dL (0.2-1.0); TOTAL PROTEIN 7.7 g/dL (6.4-8.2)
[2021-08-25] MEDS ORDERED: FAMOTIDINE 20 MG/2 ML VIAL IVP ONE (14:00)
[2021-08-25] MEDS ORDERED: ONDANSETRON PF 4 MG/2 ML VIAL. IVP ONE (14:00)
[2021-08-25 14:50] LABS: BACTERIA,URINE FEW /HPF (0-FEW)
--- NOTE | 2021-08-25 14:52 | RAD ---
CT ABDOMEN+PELVIS WO History: Reason: colicky epigastric pain, nausea, diarrhea / Spl. Instructions: / History: Technique: Noncontrast examination of the abdomen and pelvis. Coronal and sagittal reconstructions we re performed. Exposure: One or more of the following individualized dose reduction techniques were utilized for thi s examination: 1. Automated exposure control 2. Adjustment of the mA and/or kV according to patient size 3. Use of iterative reconstruction technique. Comparison: April 30, 2016 Findings: Lower chest: Left upper and lower lobe posterior pleural nodules unchanged compared to 2017 and likel y benign. Stability over time. Bilateral lower lobe linear atelectasis. Small hiatal hernia. Abdomen and pelvis: The liver, spleen, adrenal glands, and pancreas are unremarkable. Cholelithiasis. No biliary ductal dilatation. No renal calculus. No hydronephrosis. No ureteral or urinary bladder c alculus. Decompressed urinary bladder. Postoperative changes sigmoid colon. Mild colonic diverticulosis. Normal appendix. No evidence of bow el obstruction. Postoperative changes anterior abdominal wall mesh hernia repair. Small postoperative fluid collection along the anterior aspect of the Myles measures 2.8 x 0.9 cm. Unchanged superior ante rior abdominal wall fat-containing hernia. No pathologic lymphadenopathy. No ascites. Calcified uteri ne lesion, likely fibroid, unchanged. Mild atheromatous plaque within the nonaneurysmal abdominal aor ta and branch vessels. Bones: No pathologic osseous lesions. Impression: 1. No acute abdominal or pelvic pathology. 2. Cholelithiasis. Electronically signed by: Tin Dillard DO (08/25/2021 2:50 PM) [facility]
--- NOTE | 2021-08-25 15:25 | PHYS DOC ---
Past Medical History Past Medical History: High Cholesterol, Hypertension Additional Past Medical Histor: hiatal hernia, abdominal wall hernia Past Surgical History: Other Additional Past Surgical Histo: hernia repair, partial colon resection Smoking Status: Never Smoker Alcohol Use: None Drug Use: None General Adult EDM: Chief Complaint: ABDOMINAL PAIN HPI: HPI: Patient is a 66 year old female who presents with central/upper abdominal pain. Patient states that the pain is bothered her for a few days, but yesterday was severe. She is not in pain at rest at this time. Patient reports associated nausea and diarrhea, but denies vomiting. Patient states that since the pain began to intensify yesterday, she has not eaten. Patient has a known pe riumbilical hernia and has had a hernia repair in the past. Additionally, she has had part of her colon resected. Patient denies fever, chills, generalized weakness, dysuria, hematuria, bloody stool. Review of Systems: Review of Systems: Constitutional: See HPI Eyes: Denies change in visual acuity, visual field deficits or discharge HENT: Denies ear pain, nasal congestion or sore throat Respiratory: Denies cough or shortness of breath Cardiovascular: Denies chest pain, palpitations or edema GI: See HPI : See HPI Musculoskeletal: Denies back pain or joint pain Integument: Denies rash or other skin lesion Neurologic: Denies headache, focal weakness or sensory changes Heart Score: C/O Chest Pain: No Current Medications: Current Medications Medications (Trade) Dose Ordered Sig/Ammy Start Time Stop Time Status Last Admin Dose Admin Famotidine (Pepcid Vial) 20 mg 1X ONCE 08/25/21 14:00 08/25/21 14:01 DC 08/25/21 14:00 20 MG Ketorolac Tromethamine (Toradol 30mg Vial) 15 mg PRN 1X PRN 08/25/21 13:30 08/30/21 13:29 08/25/21 13:46 15 MG Ondansetron HCl (Zofran) 4 mg 1X ONCE 08/25/21 14:00 08/25/21 14:01 DC 08/25/21 14:00 4 MG Ringer's Solution 1,000 ml @ 1,000 mls/hr Q1H 08/25/21 13:30 08/25/21 14:29 DC 08/25/21 13:46 1,000 MLS/HR Allergies: Allergies: Allergies Coded Allergies Type Severity Reaction Last Updated Verified No Known Drug Allergies 04/30/16 No Physical Exam: PE: Constitutional: Well developed, well nourished, no acute distress, non-toxic appearance. HENT: Normocephalic, atraumatic, bilateral external ears normal, oropharynx moist, no oral exudates, nose normal. Eyes: EOMI, no conjunctival injection, no discharge. Neck: Normal range of motion, no stridor. Cardiovascular: Heart regular rate and rhythm. Lungs & Thorax: Equal thoracic expansion, no increased work of breathing. Abdomen: Bowel sounds normal, soft, mild upper abdominal tenderness without rebound or guarding, negative Goldstein sign, no masses, no pulsatile masses. Skin: Warm, dry, no erythema, no rash. Extremities: No cyanosis, no clubbing, ROM intact, no edema. Neurologic: Alert and oriented x4, normal motor function, normal sensory function, no focal deficits noted. Current Patient Data: Labs: Laboratory Tests Test 08/25/21 13:06 08/25/21 14:08 White Blood Count 6.8 x10^3/uL (4.0-11.0) Red Blood Count 4.35 x10^6/uL (3.50-5.40) Hemoglobin 13.9 g/dL (12.0-15.5) Hematocrit 41.4 % (36.0-47.0) Mean Corpuscular Volume 95 fL (79-100) Mean Corpuscular Hemoglobin 32 pg (25-35) Mean Corpuscular Hemoglobin Concent 34 g/dL (31-37) Red Cell Distribution Width 13.7 % (11.5-14.5) Platelet Count 244 x10^3/uL (140-400) Neutrophils (%) (Auto) 55 % (31-73) Lymphocytes (%) (Auto) 33 % (24-48) Monocytes (%) (Auto) 9 % (0-9) Eosinophils (%) (Auto) 2 % (0-3) Basophils (%) (Auto) 1 % (0-3) Neutrophils # (Auto) 3.8 x10^3/uL (1.8-7.7) Lymphocytes # (Auto) 2.2 x10^3/uL (1.0-4.8) Monocytes # (Auto) 0.6 x10^3/uL (0.0-1.1) Eosinophils # (Auto) 0.1 x10^3/uL (0.0-0.7) Basophils # (Auto) 0.0 x10^3/uL (0.0-0.2) Sodium Level 142 mmol/L (136-145) Potassium Level 4.3 mmol/L (3.5-5.1) Chloride Level 109 mmol/L (98-107) H Carbon Dioxide Level 21 mmol/L (21-32) Anion Gap 12 (6-14) Blood Urea Nitrogen 19 mg/dL (7-20) Creatinine 0.5 mg/dL (0.6-1.0) L Estimated GFR (Cockcroft-Gault) 123.1 BUN/Creatinine Ratio 38 (6-20) H Glucose Level 98 mg/dL (70-99) Calcium Level 9.2 mg/dL (8.5-10.1) Total Bilirubin 0.6 mg/dL (0.2-1.0) Aspartate Amino Transferase (AST) 34 U/L (15-37) Alanine Aminotransferase (ALT) 30 U/L (14-59) Alkaline Phosphatase 97 U/L (46-116) Troponin I High Sensitivity 6 ng/L (4-50) Total Protein 7.7 g/dL (6.4-8.2) Albumin 3.8 g/dL (3.4-5.0) Albumin/Globulin Ratio 1.0 (1.0-1.7) Lipase 77 U/L (73-393) Urine Collection Type Unknown Urine Color (Auto) Light yellow Urine Turbidity Clear Urine pH (Auto) 5.0 (<5.0-8.0) Urine Specific Hart 1.024 (1.000-1.030) Urine Protein (Auto) Negative mg/dL (Negative) Urine Glucose (Auto)(UA) Negative mg/dL (Negative) Urine Ketones (Auto) Trace mg/dL (Negative) Urine Blood (Auto) Moderate (Negative) Urine Nitrite Negative (Negative) Urine Bilirubin (Auto) Negative (Negative) Urine Urobilinogen (Auto) Normal mg/dL (Normal) Urine Leukocyte Esterase (Auto) Negative (Negative) Urine RBC 1-2 /HPF (0-2) Urine WBC 1-4 /HPF (0-4) Urine Squamous Epithelial Cells Occ /LPF Urine Bacteria Few /HPF (0-FEW) Urine Mucus Slight /LPF Laboratory Tests 08/25/21 13:06 Laboratory Tests 08/25/21 13:06 Vital Signs: Vital Signs Date Time Temp Pulse Resp B/P (MAP) Pulse Ox O2 Delivery O2 Flow Rate FiO2 08/25/21 15:38 84 20 142/74 (96) 98 Room Air 08/25/21 12:52 98.6 74 18 185/84 (117) 98 Room Air 98.6 EKG: EKG: EKG Interpreted by Dr. Carmona, taken at 1341: Regular rate and rhythm 68 bpm with no ectopic beats. QT 404 ms/QTc 434 ms. No STEMI. Radiology/Procedures: Radiology/Procedures: PROCEDURE: CT ABDOMEN PELVIS WO CONTRAST CT ABDOMEN+PELVIS WO History: Reason: colicky epigastric pain, nausea, diarrhea / Spl. Instructions: / History: Technique: Noncontrast examination of the abdomen and pelvis. Coronal and sagittal reconstructions were performed. Exposure: One or more of the following individualized dose reduction techniques were utilized for this examination: 1. Automated exposure control 2. Adjustment of the mA and/or kV according to patient size 3. Use of iterative reconstruction technique. Comparison: April 30, 2016 Findings: Lower chest: Left upper and lower lobe posterior pleural nodules unchanged compared to 2017 and likely benign. Stability over time. Bilateral lower lobe linear atelectasis. Small hiatal hernia. Abdomen and pelvis: The liver, spleen, adrenal glands, and pancreas are unremarkable. Cholelithiasis. No biliary ductal dilatation. No renal calculus. No hydronephrosis. No ureteral or urinary bladder calculus. Decompressed urinary bladder. Postoperative changes sigmoid colon. Mild colonic diverticulosis. Normal appendix. No evidence of bowel obstruction. Postoperative changes anterior abdominal wall mesh hernia repair. Small postoperative fluid collection along the anterior aspect of the Myles measures 2.8 x 0.9 cm. Unchanged superior ante rior abdominal wall fat-containing hernia. No pathologic lymphadenopathy. No ascites. Calcified uterine lesion, likely fibroid, unchanged. Mild atheromatous plaque within the nonaneurysmal abdominal aorta and branch vessels. Bones: No pathologic osseous lesions. Impression: 1. No acute abdominal or pelvic pathology. 2. Cholelithiasis. Electronically signed by: Tin Dillard DO (08/25/2021 2:50 PM) [facility] Course & Med Decision Making: Course & Med Decision Making Pertinent Labs and Imaging studies reviewed. (See chart for details) Patient is a 66-year-old female who presents with upper abdominal pain for the past few days, but worse yesterday. She has history of hernia repair and additional hernia. Work-up today reveals gallstones without inflammation/infection. Patient's pain is much better on reevaluation. There is no evidence of infection or ob struction of existing abdominal wall hernia. Patient was informed of all findings. I discussed with the patient and her follow-up instruction. Return precautions were provided. Patient and her understand and are agreeable to discharge plan. Dragon Disclaimer: Dragon Disclaimer: This electronic medical record was generated, in whole or in part, using a voice recognition dictation system. Departure Departure Impression: Primary Impression: Cholelithiasis without cholecystitis Additional Impressions: Hiatal hernia without gangrene or obstruction Hernia of anterior abdominal wall Disposition: 01 HOME / SELF CARE / HOMELESS Condition: IMPROVED Referrals: UNKNOWN PCP NAME (PCP) ENMANUEL GUNTER MD Patient Instructions: Cholelithiasis, [id number], Hernia, [id number], Hiatal Hernia Additional Instructions: INSTRUCCIONES GENERALES DE WILEY DEL DEPARTAMENTO DE EMERGENCIA Luz por venir hoy al Departamento de Emergencias (ED) de [facility] y confiarnos wiggins atencin. Confiamos en que haya tenido nathaly experiencia positiva en nuestro Departamento de Emergencias. Si desea hablar con la gerencia del departamento, puede llamar al director al . CHERISE INSTRUCCIONES DE SEGUIMIENTO SON LAS SIGUIENTES: 1. Joey un seguimiento con wiggins mdico de atencin primaria. Si no tiene un mdico de cabecera, solicite nathaly lista de recursos de mdicos o clnicas que puedan ayudarlo con la atencin de seguimiento. 2. El proveedor de emergencia bermudez interpretado cherise estudios de imgenes, si se ordenaron. El especialista en imgenes de radiologa tambin los chino. Si hay un cambio en los hallazgos, se le notificar en 48 horas cuando sea posible. 3. Si se bermudez realizado nathaly prueba de laboratorio o un cultivo, se revisarn cherise resultados y se le notificar si necesita un cambio en el tratamiento. 4. Siga las instrucciones verbalizadas y consulte las copias impresas si es necesario. INSTRUCCIONES E INFORMACIN ADICIONALES: 1. Wiggins atencin hoy bermudez sido supervisada por un mdico especialmente capacitado en atencin de emergencia. Muchos problemas requieren ms de nathaly evaluacin para un diagnstico y tratamiento completos. Le recomendamos que programe wiggins toni de seguimiento segn lo recomendado para garantizar el tratamiento completo de wiggins enfermedad o lesin. Si no puede obtener atencin de seguimiento y contina teniendo un problema, o si wiggins condicin empeora, le recomendamos que regrese al servicio de urgencias. 2. No podemos determinar de manera camara wiggins condicin por telfono ni podemos torin consejos mdicos slidos por telfono. Por estas razones de seguridad, si llama para pedir consejo mdico, le pediremos que vaya al servicio de urgencias para nathaly evaluacin adicional. 3. Si tiene alguna pregunta sobre estas instrucciones de wiley, llame al ED al . INFORMACIN DE SEGURIDAD: En inters de la seguridad, el bienestar y la prevencin de lesiones; le recomendamos que use wiggins cinturn de seguridad, si fuma; bastante fumador, y alentamos a la nano a usar un apolonia protector para andar en bicicleta y otros eventos deportivos que presenten un mayor riesgo de lesiones en la gadiel. SI CHERISE SNTOMAS EMPEORAN O SE DESARROLLAN NUEVOS SNTOMAS, O SI TIENE PREOCUPACIONES SOBRE WIGGINS CONDICIN; O SI WIGGINS CONDICIN EMPEORA MIENTRAS ESPERA WIGGINS TONI DE SEGUIMIENTO; PNGASE EN CONTACTO CON WIGGINS MDICO DE ATENCIN PRIMARIA, EL MDICO CUYO NOMBRE Y NMERO LE DIERON, O REGRESE AL ED INMEDIATAMENTE. DANIELLE TANNER August 25, 2021 15:25
[2021-08-25 15:38] VITALS: BP 142/74
--- NOTE | 2021-08-26 09:07 | EKG ---
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
== END 2021-08-25 15:39 | disposition home or self-care (01) ==
LOC: ER 12:50
DX: K80.20 Calculus of gallbladder without cholecystitis without obstruction (principal); K44.9 Diaphragmatic hernia without obstruction or gangrene; Z98.890 Other specified postprocedural states; E78.00 Pure hypercholesterolemia, unspecified; I10 Essential (primary) hypertension
CPT/HCPCS: 36415; 74176; 80053; 81001; 83690; 84484; 85025; 93005; 96361; 96374; 96375; 99285; J1885; J2405; J3490; J7120